=== PATIENT | male | born 1930 | race Hispanic/Latino ===

== ENCOUNTER 2016-11-15 23:48 | Inpatient (IN) | payer MEDICARE ==
[2016-11-15 23:59] VITALS: BMI 25.9
--- NOTE | 2016-11-16 00:35 | ED PDOC ---
Arrival/HPI - General Chief Complaint: Trauma Time Seen by Provider: 11/16/16 00:11 Historian: Patient - History of Present Illness Narrative History of Present Illness (Text): 11/16/16 00:22 Higinio Galarza is an 86 year old male, denies any past medical history, who presents to the Emergency department status post mechanical fall. Patient states he tripped over his own feet and fell on to his left hip and elbow. Patient now presents with left hip and elbow pain. Patient is unable to bear weight secondary to pain. Patient denies any other trauma, tingling/numbness in the extremities, or any other complaints. Time/Duration: Other (today) Symptom Onset: Gradual Symptom Course: Unchanged Activities at Onset: Light Context: Home, Tripped Past Medical History - Provider Review Nursing Documentation Reviewed: Yes - Psychiatric Hx Substance Use: No - Anesthesia Hx Anesthesia: No Family/Social History - Physician Review Nursing Documentation Reviewed: Yes Family/Social History: Unknown Family HX Smoking Status: Never Smoked Hx Alcohol Use: No Hx Substance Use: No Allergies/Home Meds Allergies/Adverse Reactions: Allergies No Known Allergies Allergy (Verified 11/16/16 00:02) Home Medications: Home Meds Medication Instructions Recorded Confirmed No Known Home Med 11/15/16 11/16/16 Physical Exam - Physical Exam Narrative Physical Exam (Text): - Review of Systems Constitutional: Normal. absent: Fatigue, Weight Change, Fevers Eyes: Normal ENT: Normal Respiratory: Normal absent: SOB, Cough, Sputum Cardiovascular: Normal absent: Chest pain, Palpitations, Syncope Gastrointestinal: Normal absent: Abdominal pain, Diarrhea, Nausea, Vomiting Genitourinary: Normal. absent: Dysuria, Frequency, Hematuria Musculoskeletal: +left hip pain, +left elbow pain absent: Back Pain, Neck Pain Skin: Normal Neurological: Normal absent: Focal Weakness Endocrine: Normal Hemo/Lymphatic: Normal Psychiatric: Normal - Physical exam Patient appears age appropriate, speaking full sentences without difficulty Head atraumatic. No nasal bone deformity or tenderness, no facial or jaw pain/ swelling. No neck midline tenderness, thoracic and lumbar spine with no midline tenderness. Pt moving b/l upper extremities without difficulty, 5/5 strength, with full active and passive ROM. Left elbow with superficial skin avulsion, no active bleeding, palpable hematoma to the area. Left hip with limited ROM due to pain and tenderness. Distal neurovascularly fully intact. Abd soft/nt/nd, no peritoneal signs. - Systems Exam Head: Present: Atraumatic, Normocephalic Pupils: Present: PERRL Extraocular Muscles: Present: EOMI Conjunctiva: Present: Normal Mouth: Present: Moist Mucous Membranes Neck: Present: Normal Range of Motion. No: MIDLINE TENDERNESS, Paraspinal Tenderness Respiratory/Chest: Present: Clear to Auscultation, Good Air Exchange. No: Respiratory Distress, Accessory Muscle Use, Tachypneic Cardiovascular: Present: Regular Rate and Rhythm, Normal S1, S2, Peripheral Pulses Present. No: Murmurs Abdomen: Present: Normal Bowel Sounds, No: Tenderness, Peritoneal Signs, Rebound, Guarding, Distention Back: Present: Normal Inspection. No: Midline Tenderness, Paraspinal Tenderness Neurological: Present: GCS=15, Speech Normal, cranial nerves II through XII fully intact with no cerebellar abnormality, neuro-sensory fully intact. No focal neurological deficits. Skin: Present: Warm, Dry, Normal Color. No: Rashes Psychiatric: Present: Alert, Oriented x 3, Normal Insight, Normal Concentration Vital Signs Reviewed: Yes Vital Signs Temp Pulse Resp BP Pulse Ox 11/16/16 01:51 93 H 18 147/88 94 L 11/15/16 23:58 98.4 F 85 18 145/87 95 Temperature: Afebrile Blood Pressure: Normal Pulse: Regular Respiratory Rate: Normal Appearance: Positive for: Well-Appearing, Non-Toxic, Comfortable Pain Distress: None Mental Status: Positive for: Alert and Oriented X 3 Medical Decision Making ED Course and Treatment: 11/16/16 00:22 Impression: 86 year old male presents s/p mechanical fall with left hip and elbow pain. On exam, left elbow with superficial skin avulsion, no active bleeding, palpable hematoma to the area. Left hip with limited ROM due to pain and tenderness. Otherwise benign exam. Differential Diagnosis include but are not limited to: fracture vs. contusion vs. sprain Plan: -- CT Head w/o contrast -- XR Left Elbow -- XR Left Femur -- XR Hips -- XR Bilateral Knees -- Labs -- Morphine -- Reassess and disposition Progress Notes: 11/16/16 01:30 CT Head: Dictated and Authenticated by: Ronak Biggs MD Brain: Obxi-du-nuhcuugf atrophy. No intracranial hemorrhage. No mass. Several scattered foci of decreased attenuation within periventricular/subcortical white matter. No edema. Ventricles: No hydrocephalus. Bones/joints: No acute fracture. Soft tissues: Unremarkable. Sinuses: Oito-oe-vnwmblid mucosal thickening of ethmoid sinuses. Mild mucosal thickening of frontal sinuses. Scattered minimal mucosal thickening of remaining sinuses. Mastoid air cells: No mastoid effusion. Orbits: Unremarkable as visualized. IMPRESSION: 1. No intracranial hemorrhage. 2. Nonspecific white matter changes. 3. Sinus disease. 4. Incidental/non-acute findings are described above. 11/16/16 01:32 Reviewed radiology, XR Hips shows intertrochanteric left hip fracture. XR Left Elbow unremarkable for any acute fractures or dislocation. XR Bilateral Knees unremarkable for any acute fractures or dislocation. 11/16/16 01:[address] Juancarlos Pisano, who is aware and agrees with plan. Accepts pt in to his service. Pt [facility] be [facility] to [facility] for hip fracture. Requests Dr. Curry and Dr. Espinosa on consult. pt and family aware of and agree with plan pt states that he is currently not in pain and does not want pain meds. - Lab Interpretations Lab Results: 11/16/16 00:35 11/16/16 00:35 Lab Results 11/16/16 00:35: Sodium 136, Potassium 4.2, Chloride 101, Carbon Dioxide 25, Anion Gap 14, BUN 23 H, Creatinine 1.1, Est GFR ( Amer) > 60, Est GFR ( Non-Af Amer) > 60, Random Glucose 142 H, Calcium 9.2, Total Bilirubin 1.2, AST 27, ALT 26, Alkaline Phosphatase 81, Total Protein 7.4, Albumin 3.8, Globulin 3.5, Albumin/Globulin Ratio 1.1 11/16/16 00:35: PT 11.4, INR 1.06, APTT 29.5 11/16/16 00:35: WBC 11.4 H, RBC 4.99, Hgb 15.0, Hct 44.0, MCV 88.2, MCH 30.1, MCHC 34.1, RDW 13.6, Plt Count 198, MPV 9.8, Gran % 70.6 H, Lymph % (Auto) 19.7 L, Arthur % (Auto) 8.7 H, Eos % (Auto) 0.7 L, Baso % (Auto) 0.3, Gran # 8.07 H, Lymph # 2.3, Arthur # 1.0 H, Eos # 0.1, Baso # 0.03 I have reviewed the lab results: Yes - RAD Interpretation Radiology Orders: 11/16/16 00:23 HEAD W/O CONTRAST [CT] Stat ELBOW LEFT 3 VIEWS ROUTINE [RAD] Stat FEMUR MIN 2 VIEWS LT [RAD] Stat HIP MIN 2V W/ PELVIS LT [RAD] Stat KNEES BILATERAL [RAD] Stat Sign Fabricator: ED Physician, Radiologist - Medication Orders Current Medication Orders: Discontinued Medications Morphine Sulfate (Morphine) 6 mg IM STAT STA Stop: 11/16/16 00:20 Last Admin: 11/16/16 00:38 Dose: 6 mg - Scribe Statement The provider has reviewed the documentation as recorded by the Scribrico Ta All medical record entries made by the Heladioibe were at my direction and personally dictated by me. I have reviewed the chart and agree that the record accurately reflects my personal performance of the history, physical exam, medical decision making, and the department course for this patient. I have also personally directed, reviewed, and agree with the discharge instructions and disposition. Disposition/Present on Arrival - Present on Arrival Any Indicators Present on Arrival: No History of DVT/PE: No History of Uncontrolled Diabetes: No Urinary Catheter: No History of Decub. Ulcer: No History Surgical Site Infection Following: None - Disposition Have Diagnosis and Disposition been Completed?: Yes Diagnosis: Hip fracture Disposition: HOSPITALIZED Disposition Time: 02:33 Patient Plan: Admission Condition: FAIR Referrals: Amadou Pisano MD [Primary Care Provider] - Follow up with primary
[2016-11-16 00:43] LABS: ADD MANUAL DIFF? NO
[2016-11-16 00:51] LABS: BASO # 0.03 K/mm3 (0.0-2.0); BASO % 0.3 % (0.0-3.0); EOS # 0.1 (0.0-0.7); EOS % 0.7 % (1.5-5.0); GRAN # 8.07 (1.4-6.5); GRAN % 70.6 % (50.0-68.0); LYMPH # 2.3 (1.2-3.4); LYMPH % 19.7 % (22.0-35.0); MEAN CELL VOLUME 88.2 fL (80.0-105.0); MEAN CORPUSCULAR HEMOGLOBIN 30.1 pg (25.0-35.0); MEAN CORPUSCULAR HGB CONC 34.1 g/dl (31.0-37.0); MEAN PLATELET VOLUME 9.8 fl (7.0-11.0); MONO % 8.7 % (1.0-6.0); PLATELET COUNT 198 10^3/uL (120.0-450.0); RED CELL DISTRIBUTION WIDTH 13.6 % (11.5-14.5); WHITE BLOOD COUNT 11.4 10^3/ul (4.5-11.0)
[2016-11-16 00:59] LABS: ALB/GLOB RATIO 1.1 (1.1-1.8); ALKALINE PHOSPHATASE 81 U/L (38-133); ALT/SGPT 26 U/L (7-56); AST/SGOT 27 U/L (15-59); BILIRUBIN,TOTAL 1.2 mg/dL (0.2-1.3); BLOOD UREA NITROGEN 23 mg/dL (7-21); CALCIUM 9.2 mg/dL (8.4-10.5); CARBON DIOXIDE 25 mmol/L (21-33); CHLORIDE 101 mmol/L (98-107); GFR AFRICAN-AMERICAN > 60; GLUCOSE,RANDOM 142 mg/dL (70-110); INR 1.06 (0.93-1.08); PARTIAL THROMBOPLASTIN TIME 29.5 Seconds (23.7-30.8); POTASSIUM 4.2 mmol/L (3.6-5.0); SODIUM 136 mmol/L (132-148); TOTAL PROTEIN 7.4 g/dL (5.8-8.3)
--- NOTE | 2016-11-16 01:07 | CT ---
EXAM: CT Head Without Intravenous Contrast CLINICAL HISTORY: 86 years old, male; Injury or trauma; Fall; Initial encounter; Blunt trauma (contusions or hematomas); Consciousness not specified TECHNIQUE: Axial computed tomography images of the head/brain without intravenous contrast. This CT exam was performed using one or more of the following dose reduction techniques: automated exposure control, adjustment of the mA and/or kV according to patient size, and/or use of iterative reconstruction technique. COMPARISON: No relevant prior studies available. FINDINGS: Brain: Vnlm-ib-vslkefbu atrophy. No intracranial hemorrhage. No mass. Several scattered foci of decreased attenuation within periventricular/subcortical white matter. No edema. Ventricles: No hydrocephalus. Bones/joints: No acute fracture. Soft tissues: Unremarkable. Sinuses: Cwfc-mk-popjrkyd mucosal thickening of ethmoid sinuses. Mild mucosal thickening of frontal sinuses. Scattered minimal mucosal thickening of remaining sinuses. Mastoid air cells: No mastoid effusion. Orbits: Unremarkable as visualized. IMPRESSION: 1. No intracranial hemorrhage. 2. Nonspecific white matter changes. 3. Sinus disease. 4. Incidental/non-acute findings are described above.
[2016-11-16] MEDS ORDERED: Oxycodone/Acetaminophen 5/325 mg Tab PO PRN (02:33)
--- NOTE | 2016-11-16 08:46 | RAD ---
PROCEDURE: Left femur HISTORY: fall COMPARISON: TECHNIQUE: Five views FINDINGS: There is a displaced intertrochanteric fracture of the left hip. The remainder of the femur is intact. IMPRESSION: As above
--- NOTE | 2016-11-16 08:47 | RAD ---
PROCEDURE: Left Hip X-ray Radiographs. HISTORY: fall COMPARISON: None. FINDINGS: BONES: There is a displaced intertrochanteric fracture of the left hip. The pelvis is intact JOINTS: Normal. SOFT TISSUES: Normal. OTHER FINDINGS: None. IMPRESSION: There is a displaced intertrochanteric fracture of the left hip. The pelvis is intact
--- NOTE | 2016-11-16 08:49 | RAD ---
PROCEDURE: Bilateral knees HISTORY: fall COMPARISON: TECHNIQUE: Two views of each knee FINDINGS: There is joint space narrowing in the medial compartment of the left knee. The right knee is unremarkable IMPRESSION: Joint space narrowing medial compartment of left knee
--- NOTE | 2016-11-16 08:50 | RAD ---
PROCEDURE: Radiographs of the left elbow. HISTORY: fall COMPARISON: No prior. FINDINGS: BONES: Normal. No fracture. JOINTS: Normal. No osteoarthritis. SOFT TISSUES: Normal. JOINT EFFUSION: None. OTHER FINDINGS: None IMPRESSION: Unremarkable radiographs of the left elbow.
[2016-11-16 09:27] LABS: INR 1.05 (0.93-1.08); PARTIAL THROMBOPLASTIN TIME 29.6 Seconds (23.7-30.8)
--- NOTE | 2016-11-16 09:30 | RAD ---
HISTORY: OR COMPARISON: No prior. FINDINGS: LUNGS: No active pulmonary disease. PLEURA: No significant pleural effusion identified, no pneumothorax apparent. CARDIOVASCULAR: Normal. OSSEOUS STRUCTURES: No significant abnormalities. VISUALIZED UPPER ABDOMEN: Normal. OTHER FINDINGS: None. IMPRESSION: No active disease.
--- NOTE | 2016-11-16 10:08 | CON ---
DATE: 11/16/2016 The patient is an 86-year-old male who fell at home cleaning his yard and came to the ER early this m orning and x-rays showed a minimally displaced fracture, intertrochanteric region of the left hip. Rishabh gómez has good bone structure, is in excellent health for his age of 86. He takes no medications. Dr. Romel lynn is his doctor. We are going to get a medical clearance, Dr. Higgins cardiac evaluation and I w ill be able to perform an open reduction internal fixation with a peritrochanteric cee from [employer] to day. The patient understands the procedure, possible blood replacement and the benefit is that he wi ll be reduced pain and be able to get up out of bed. The risks are it may not heal well or it may ne ed a revision surgery, but the best thing is to stabilize the hip, so he could get up out of bed and it is going to take 3 months to heal. FINAL DIAGNOSIS: Intertrochanteric fracture of left hip. PLAN: To do open reduction internal fixation when medically cleared by Dr. Higgins Amadou Espinosa DO cc: [id number] TT: 11/16/2016 10:08:03 Confirmation # [id number] Dictation # [id number] cristhian
[2016-11-16] MEDS ORDERED: Sevoflurane - Inhalation Anesthetic Liq (250 ml) ONE (13:30)
[2016-11-16] MEDS ORDERED: Desflurane Inhalation Anesthetic Liq (240 ml) ONE ×2 (13:32→14:31)
[2016-11-16] MEDS ORDERED: Propofol 10 mg/ml Inj (20 ML) ONE ×2 (13:35→15:28)
--- NOTE | 2016-11-16 13:54 | CARD ---
APPROVED REPORT EKG Measurement Heart [id number] <Conclusion> Normal sinus rhythm Incomplete left bundle branch block ST & T wave abnormality, consider lateral ischemia Abnormal ECG
[2016-11-16] MEDS ORDERED: Succinylcholine 200 mg/10 ml Inj IV ONE (14:20)
[2016-11-16] MEDS ORDERED: Lactated Ringer's 1,000 ML IV SCH (14:58)
[2016-11-16] MEDS ORDERED: HYDROmorphone 0.5 mg/0.5 ml ISec IVP PRN ×2 (14:58→15:01)
[2016-11-16] MEDS ORDERED: Bupivacaine 0.5% Inj(30mL) ONE (15:18)
[2016-11-16] MEDS ORDERED: Neostigmine Methylsulfate 3mg/3ml Syringe IV ONE (15:20)
--- NOTE | 2016-11-16 15:48 | HP ---
HISTORY OF PRESENT ILLNESS: The patient is an 86-year-old male who presents to the Emergency Room co mplaining of pain in his left hip. He apparently was sweeping his alley way when he turned, tripped and fell. He denies hitting his head. He did, however, hit his elbow in the fall. Initially he was able to walk upstairs back into the house; however, the left hip pain worsened, so the patient prese nted to the Emergency Room. He is evaluated and admitted. PAST MEDICAL HISTORY: Positive for diverticulosis of the colon many years ago. He is also known to have a chronically elevated PSA with rather extensive negative workup with his urologist, Dr. Hay in the past. SOCIAL HISTORY: He is . He is a former smoker. He does not drink alcohol nor caffeine. ALLERGIES: HE HAD AN ADVERSE REACTION TO MELOXICAM IN THE PAST. MEDICATIONS: He is essentially taking no medications. REVIEW OF SYSTEMS: Otherwise, negative. PHYSICAL EXAMINATION: GENERAL: From the office notes, I see that the patient is 65 inches tall, weighs 180 pounds. VITAL SIGNS: In the Emergency Room, he was afebrile. Blood pressure is 136/71, heart rate is 71. HEENT: Unremarkable. NECK: Supple, with no lymphadenopathy, no goiter. LUNGS: Clear to auscultation and percussion. HEART: Regular, no murmurs appreciated. ABDOMEN: Soft and nontender with no organomegaly. EXTREMITIES: Free of cyanosis, clubbing or edema. There is tenderness on flexion, abduction and pal pation of the left hip. There is ecchymosis over the left elbow. NEUROLOGIC: The patient is awake, alert, and oriented with no focal neurological deficits. X-rays of the left hip show an intertrochanteric fracture. A CAT scan of the head is negative. X-ra ys of the left knee is negative. X-ray of the left elbow is negative. LABORATORY STUDIES: Show the white blood cell count to be 11.4, hemoglobin and hematocrit are 15.0 a nd 44.0 respectively. Platelet count is 138. Sodium is 136, potassium 4.2, BUN is 23, creatinine is 1.1. Nonfasting glucose is 142. PT/INR is 1.05. When seen today, the patient is in bed. His family is at bedside, Dr. Amadou Espinosa, the ortho pedist, also came into the room and the patient is to be taken to the operating room for pinning of t he intertrochanteric fracture of the left hip. The patient will be seen again tomorrow. We will fol low the patient postoperatively. Amadou Pisano MD cc: [id number] TT: 11/16/2016 15:47:14 jn
[2016-11-16] MEDS ORDERED: HYDROmorphone 0.5 mg/0.5 ml ISec SC PRN (16:02)
--- NOTE | 2016-11-16 16:13 | RAD ---
PROCEDURE: Fluoroscopy up to 1 hour HISTORY: ORIF LT HIP COMPARISON: TECHNIQUE: Fluoroscopy was provided in the operating room. 50 seconds of fluoroscopy time were utilized. 5 images were submitted FINDINGS: There is internal fixation of the left hip with a compression screw and intramedullary cee. IMPRESSION: As above
[2016-11-16] MEDS: Dextrose 5%/0.45% NS 1,000 ML IV SCH (17:07)
[2016-11-16 17:19] LABS: ADD MANUAL DIFF? NO
[2016-11-16 17:23] LABS: BASO # 0.02 K/mm3 (0.0-2.0); BASO % 0.1 % (0.0-3.0); EOS # 0.2 (0.0-0.7); EOS % 1.2 % (1.5-5.0); GRAN # 12.27 (1.4-6.5); HEMATOCRIT 42.1 % (42.0-52.0); LYMPH # 1.4 (1.2-3.4); LYMPH % 9.6 % (22.0-35.0); MEAN CORPUSCULAR HEMOGLOBIN 29.7 pg (25.0-35.0); MEAN PLATELET VOLUME 10.3 fl (7.0-11.0); MONO # 0.6 (0.1-0.6); MONO % 4.1 % (1.0-6.0); PLATELET COUNT 202 10^3/uL (120.0-450.0); RED CELL DISTRIBUTION WIDTH 13.9 % (11.5-14.5); WHITE BLOOD COUNT 14.4 10^3/ul (4.5-11.0)
--- NOTE | 2016-11-16 17:58 | CON ---
DATE: 11/16/2016 CONSULT SERVICE: Cardiology. REASON FOR CONSULTATION: Preop evaluation and risk stratification for left hip fracture, possible OR this morning. BRIEF CLINICAL HISTORY: This is an 86-year-old male with no significant past medical history. He do es not take any medications except Tylenol off and on. Has a history of both knee arthritis and ____ _ the stockings and then feels better; who tripped at home and fell down and sustained left hip intra trochanteric fracture requiring open reduction and internal fixation. The patient denies any chest p ain, denies any shortness of breath, denies any palpitations. PAST MEDICAL HISTORY: Nothing significant. SOCIAL HISTORY: Quit smoking 30 years ago. Denies any history of alcohol abuse. 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 The patient is pretty active. MEDICATIONS: None. ALLERGIES: No known drug allergies. REVIEW OF SYSTEMS: As per HPI. PHYSICAL EXAMINATION: VITAL SIGNS: Temperature afebrile, heart rate 71, blood pressure 124/78. HEENT: PERRLA. Extraocular muscles intact. NECK: Supple. No carotid bruits. No thyromegaly. CHEST: Clear to auscultation. HEART: S1, S2 regular. ABDOMEN: Soft. EXTREMITIES: Clubbing and cyanosis negative. LABORATORY DATA: Blood workup as follows: WBC 11.4, hemoglobin 15, hematocrit 44.0, platelet count 198. Chemistry shows sodium , potassium 4.2, chloride 101, carbon dioxide 25, anion gap of 14, BUN 23, creatinine 1.1. EKG shows normal sinus, incomplete left bundle, ST-T changes consistent with bundle branch abnormality, repolarization abnormality. IMPRESSION: Status post fall, status post intratrochanteric left fracture. Has a very active lifest yle, not on any medications, , diabetes, hypertension. Had no history of documented coronary ar iván disease. EKG shows normal sinus, incomplete left bundle, ST-T changes secondary to repolarizati on abnormality. The patient is cleared from cardiac point of view to go for the OR for hip surgery w ith a moderate risk secondary to underlying comorbidity, but no absolute contraindication. No histor y of congestive heart failure. No history of chest pain. No history of angina or arrhythmia. The p atient's baseline blood pressure elevated. Will start low dose of beta mera starting from afterno on to prevent going into atrial fibrillation postop from the pain. Will follow with you. Monitor hy pertension. Thank you, Dr. Espinosa, for providing me the opportunity in taking care of the patient Troy Higgins MD cc: [id number] TT: 11/16/2016 17:57:40 Confirmation # [id number] Dictation # [id number] dn
--- NOTE | 2016-11-16 18:46 | OP ---
PROCEDURE DATE: 11/16/2016 PREOPERATIVE DIAGNOSIS: Intertrochanteric fracture, left hip. POSTOPERATIVE DIAGNOSIS: Intertrochanteric fracture, left hip. PROCEDURE: Biomet peritroch percutaneous internal fixation with a [employer]omet peritroch cee 170 mm long f or the cee and the lag screw was 110 mm long and the angle was 27 degrees angle. ANESTHESIA: General endotracheal tube. DESCRIPTION OF PROCEDURE: After being taken to the OR, left hip prepped and draped in sterile fashio n on the fracture table with gentle traction on the left leg. The fracture was minimally displaced w ithout much comminution, and with the help of the C-arm, we saw that it was in good position then mad e the first incision after the general anesthesia endotracheal tube. A 2 cm incision 5 cm proximal t o the greater trochanter opening the skin and the fascia and going down to the tip of the greater tro chanter inserting the threaded tip guidewire and taken down past the fracture to allow us to over chloé m to a 17 mm reamer for 7 cm. Then we passed the beaded tip guidewire through the fracture into the distal fragment and over reamed everything with a 12-1/2 mm reamer to make sure we could get the 11 m m wide cee down, which now we did after we put on the jig and was inserted to the level of the femora l neck and then put in this for the second incision and going into the femoral head and neck wi th a guidewire. It showed good position in both AP and lateral and then we reamed for the lag screw, which was 10 mm long. We put in the lag screw over the guidewire by tapping it first, because the b one was very good quality and the lag screw was inserted through the cee that protected the fracture. Then, we took the traction off and put in the distal locking screw, 34 mm long cortical screw to lo ck the cee distally after we took the traction off. The 3 wounds that we used for the 3 implants, th e nail, the lag screw and the cortical screw were all irrigated with normal saline with Kantrex, clos ed in layers with running 0 Vicryl deep layer, 2-0 Vicryl for subcutaneous tissue, skin with 2-0 nylo n. The patient taken to recovery room in good condition. Amadou Espinosa DO cc: [id number] TT: 11/16/2016 18:46:36 [facility] # [id number] mn
[2016-11-16] MEDS ORDERED: ceFAZolin 1 gm in NS 1 GM/100 ML BAG IVPB ONE (22:00)
[2016-11-17] MEDS: Oxycodone/Acetaminophen 5/325 mg Tab PO PRN (00:05)
[2016-11-17] MEDS: Dextrose 5%/0.45% NS 1,000 ML IV SCH (06:46)
[2016-11-17 06:59] LABS: ADD MANUAL DIFF? NO
[2016-11-17 07:32] LABS: ALB/GLOB RATIO 1.1 (1.1-1.8); ALKALINE PHOSPHATASE 65 U/L (38-133); ALT/SGPT 26 U/L (7-56); AST/SGOT 28 U/L (15-59); BLOOD UREA NITROGEN 22 mg/dL (7-21); CALCIUM 8.6 mg/dL (8.4-10.5); CARBON DIOXIDE 26 mmol/L (21-33); CHLORIDE 104 mmol/L (98-107); CHOLESTEROL 123 mg/dL (130-200); GFR AFRICAN-AMERICAN > 60; GLUCOSE,RANDOM 148 mg/dL (70-110); POTASSIUM 4.5 mmol/L (3.6-5.0); SODIUM 137 mmol/L (132-148); TOTAL PROTEIN 6.6 g/dL (5.8-8.3)
[2016-11-17 07:41] LABS: BASO # 0.01 K/mm3 (0.0-2.0); BASO % 0.1 % (0.0-3.0); EOS % 0.1 % (1.5-5.0); GRAN # 11.13 (1.4-6.5); GRAN % 79.8 % (50.0-68.0); LYMPH # 1.6 (1.2-3.4); LYMPH % 11.5 % (22.0-35.0); MEAN CELL VOLUME 88.1 fL (80.0-105.0); MEAN CORPUSCULAR HEMOGLOBIN 29.8 pg (25.0-35.0); MEAN CORPUSCULAR HGB CONC 33.8 g/dl (31.0-37.0); MEAN PLATELET VOLUME 10.2 fl (7.0-11.0); MONO # 1.2 (0.1-0.6); MONO % 8.5 % (1.0-6.0); PLATELET COUNT 188 10^3/uL (120.0-450.0); RED CELL DISTRIBUTION WIDTH 13.5 % (11.5-14.5); WHITE BLOOD COUNT 13.9 10^3/ul (4.5-11.0)
--- NOTE | 2016-11-17 09:31 | PN ---
DATE: 11/17/2016 This 86-year-old male underwent left hip pinning for a fractured left hip yesterday. He is doing khloe te well. Hemoglobin is stable, over 10 grams and pain is controlled. We will get him out of bed tod ay. He can actually put weight on his left hip protected with a walker with the help of therapy and we will continue therapy tomorrow and still follow his H and H again tomorrow. Wound is dry and hope fully we maybe could plan for accelerated rehab by just sending him home with good rehab and visiting nurses because he has good family support and was very active preop. He is in good health. FINAL DIAGNOSIS: Postop 1 day left hip intertrochanteric fracture with a peritrochanteric cee implneo shelley. Send to therapy, ambulate walking, partial weightbearing and follow his hemoglobin and hematocr it. Amadou Espinosa DO cc: [id number] TT: 11/17/2016 09:30:45 Confirmation # [id number] Dictation # [id number] sn
[2016-11-17] MEDS: Enoxaparin 30 mg Syringe SC SCH (11:13)
--- NOTE | 2016-11-17 14:07 | PN ---
DATE: 11/17/2016 REASON FOR CONSULTATION AND FOLLOWUP: Preop evaluation, atrial fibrillation, left hip surgery, statu s post OR, now postop followup. BRIEF CLINICAL HISTORY: This is an 86-year-old male with no significant past medical history, fell d own and sustained a fracture of left hip, status post OR internal fixation. Denies any chest pain, s hortness of breath, any palpitation. PHYSICAL EXAMINATION: VITAL SIGNS: Temperature afebrile, heart rate 97, blood pressure 155/102. HEENT: PERRLA. Extraocular muscles intact. NECK: Supple. No carotid bruits. No thyromegaly. CHEST: Clear to auscultation. HEART: S1, S2 regular. ABDOMEN: Soft. EXTREMITIES: Clubbing and cyanosis negative. Operative site appears clean. BLOOD WORKUP: As follows: WBC ____, hemoglobin ____, hematocrit 37, platelet count 188. Chemistry shows sodium 137, potassium 4.5, chloride 104, carbon dioxide 26, anion gap of 12, BUN 22, creatinine 1.0. IMPRESSION: Status fall, status post open reduction internal fixation, sinus tachycardia, hypertensi on postop. RECOMMENDATION: Increase metoprolol to 25 b.i.d. Continue DVT prophylaxis. We will follow with you. Thank you, ____, for providing the opportunity in taking care of this patient. Will follow with you. Troy Higgins MD cc: [id number] TT: 11/17/2016 14:06:45 Confirmation # [id number] Dictation # [id number] sonia
[2016-11-17 17:24] LABS: ADD MANUAL DIFF? NO
[2016-11-17 17:31] LABS: BASO # 0.02 K/mm3 (0.0-2.0); BASO % 0.2 % (0.0-3.0); EOS # 0.2 (0.0-0.7); EOS % 1.7 % (1.5-5.0); GRAN # 9.32 (1.4-6.5); HEMATOCRIT 36.6 % (42.0-52.0); LYMPH # 2.5 (1.2-3.4); LYMPH % 18.6 % (22.0-35.0); MEAN CELL VOLUME 89.1 fL (80.0-105.0); MEAN CORPUSCULAR HEMOGLOBIN 29.9 pg (25.0-35.0); MEAN CORPUSCULAR HGB CONC 33.6 g/dl (31.0-37.0); MEAN PLATELET VOLUME 9.7 fl (7.0-11.0); MONO # 1.3 (0.1-0.6); MONO % 9.5 % (1.0-6.0); PLATELET COUNT 188 10^3/uL (120.0-450.0); RED CELL DISTRIBUTION WIDTH 13.7 % (11.5-14.5); WHITE BLOOD COUNT 13.3 10^3/ul (4.5-11.0)
[2016-11-18 07:26] LABS: ALB/GLOB RATIO 1.1 (1.1-1.8); BILIRUBIN,TOTAL 1.1 mg/dL (0.2-1.3); CALCIUM 8.9 mg/dL (8.4-10.5); MAGNESIUM 2.1 mg/dL (1.7-2.2); PHOSPHOROUS 3.6 mg/dL (2.5-4.5); POTASSIUM 4.3 mmol/L (3.6-5.0); TOTAL PROTEIN 6.3 g/dL (5.8-8.3)
[2016-11-18 09:05] LABS: ADD MANUAL DIFF? NO
--- NOTE | 2016-11-18 09:22 | PN ---
DATE: 11/18/2016 The patient is 2 days postop left hip fracture with a peritroch intramedullary cee. He is stable. He ambulated yesterday in the room. Will see how he does today and see his new hemoglobin and hematocrit which are not back yet; it is 8: 30 in the morning. If he is confident in good family follow up, we can send him home and then avoiding subacute rehab then I could follow him closer. His wound is dry. I will come back to see how he does with therapy and maybe he can go home in 2 days. Amadou Espinosa DO cc: [id number] TT: 11/18/2016 09:21:33 Confirmation # [id number] Dictation # [id number] mn JADA
[2016-11-18] MEDS: Enoxaparin 30 mg Syringe SC SCH (09:31)
[2016-11-18 09:32] LABS: BASO # 0.02 K/mm3 (0.0-2.0); BASO % 0.2 % (0.0-3.0); EOS # 0.3 (0.0-0.7); EOS % 2.3 % (1.5-5.0); GRAN # 9.46 (1.4-6.5); GRAN % 73.8 % (50.0-68.0); HEMATOCRIT 34.6 % (42.0-52.0); LYMPH # 1.8 (1.2-3.4); LYMPH % 13.7 % (22.0-35.0); MEAN CELL VOLUME 89.2 fL (80.0-105.0); MEAN CORPUSCULAR HEMOGLOBIN 29.9 pg (25.0-35.0); MEAN CORPUSCULAR HGB CONC 33.5 g/dl (31.0-37.0); MEAN PLATELET VOLUME 10.4 fl (7.0-11.0); MONO # 1.3 (0.1-0.6); PLATELET COUNT 191 10^3/uL (120.0-450.0); RED CELL DISTRIBUTION WIDTH 13.8 % (11.5-14.5); WHITE BLOOD COUNT 12.8 10^3/ul (4.5-11.0)
[2016-11-18] MEDS: POLYETHYLENE GLYCOL 3350 17 GM/Dose PACKET PO SCH ×2 (10:22→17:43)
[2016-11-18] MEDS: Oxycodone/Acetaminophen 5/325 mg Tab PO PRN ×2 (14:10→21:51)
--- NOTE | 2016-11-18 16:43 | PN ---
DATE: 11/18/2016 REASON FOR CONSULTATION AND FOLLOWUP: Preop evaluation, atrial fib, preop evaluation, risk stratific ation, status post followup. SUBJECTIVE: The patient denies any chest pain, shortness of breath, any palpitation. OBJECTIVE FINDINGS: PHYSICAL EXAMINATION: VITAL SIGNS: Temperature afebrile, heart rate , blood pressure 123/71. HEENT: PERRLA. Extraocular muscles intact. NECK: Supple. No carotid bruits. No thyromegaly. CHEST: Clear to auscultation. HEART: S1, S2 regular. ABDOMEN: Soft. EXTREMITIES: Clubbing, cyanosis negative. BLOOD WORKUP: WBC 12.8, hemoglobin 11. , hematocrit 34.6, platelet count 191. Chemistry shows s odium 135, potassium 4.3, chloride 102, carbon dioxide 26, anion gap of 11, BUN 30, creatinine 1.4. IMPRESSION: Status post , status post hip fracture, left intraventricular, status post open red uction internal fixation, hypertension, tachycardia secondary to after the exercise. The rest of the time, blood pressure remains stable. RECOMMENDATION: Continue perioperative beta mera, low dose, 25 b.i.d. Continue rehabilitation. Discussed with the patient. The patient was not willing to go to rehab. Discussed in length and exp lained the benefit of going to rehab. The patient agreeable to go to rehab. Discuss with Dr. Usama hale. Thank you, Dr. Espinosa/Dr. Pisano, for providing us the opportunity in taking care of the pat ient. Continue deep venous thrombosis prophylaxis, 30 mg of Lovenox daily. We will follow with you. Troy Higgins MD cc: [id number] TT: 11/18/2016 16:42:25 Confirmation # [id number] Dictation # [id number]
[2016-11-19 07:27] LABS: ALB/GLOB RATIO 1.1 (1.1-1.8); ALKALINE PHOSPHATASE 61 U/L (38-133); ALT/SGPT 30 U/L (7-56); AST/SGOT 28 U/L (15-59); BILIRUBIN,TOTAL 1.5 mg/dL (0.2-1.3); BLOOD UREA NITROGEN 38 mg/dL (7-21); CALCIUM 8.8 mg/dL (8.4-10.5); CARBON DIOXIDE 25 mmol/L (21-33); CHLORIDE 103 mmol/L (98-107); GFR AFRICAN-AMERICAN > 60; GLUCOSE,RANDOM 112 mg/dL (70-110); POTASSIUM 4.3 mmol/L (3.6-5.0); SODIUM 137 mmol/L (132-148); TOTAL PROTEIN 6.4 g/dL (5.8-8.3)
[2016-11-19 08:03] VITALS: RESP 20; TEMP 98.5; O2SAT 94
[2016-11-19] MEDS: Enoxaparin 30 mg Syringe SC SCH (09:33)
[2016-11-19] MEDS: POLYETHYLENE GLYCOL 3350 17 GM/Dose PACKET PO SCH (09:37)
[2016-11-19 09:39] VITALS: BP 126/88; PULSE 84
== END 2016-11-19 14:06 | DRG 482 ==
LOC: ED 23:48 → ERH 11-16 02:33 → 5RNO 11-16 04:00
PROVIDERS: ADMIT Internal Medicine; ATTEND Internal Medicine
PROC: 0SSB04Z Reposition Left Hip Joint with Internal Fixation Device, Open Approach (ICD-10-PCS; principal; 2016-11-16 13:03)
DX: S72.142A Displaced intertrochanteric fracture of left femur, initial encounter for closed fracture (principal); I48.91 Unspecified atrial fibrillation; I44.7 Left bundle-branch block, unspecified; I10 Essential (primary) hypertension; W01.0XXA Fall on same level from slipping, tripping and stumbling without subsequent striking against object, initial encounter; Y92.009 Unspecified place in unspecified non-institutional (private) residence as the place of occurrence of the external cause; K57.30 Diverticulosis of large intestine without perforation or abscess without bleeding; M17.0 Bilateral primary osteoarthritis of knee; S51.009A Unspecified open wound of unspecified elbow, initial encounter; Z87.891 Personal history of nicotine dependence; R40.2412 Glasgow coma scale score 13-15, at arrival to emergency department; R00.0 Tachycardia, unspecified

== ENCOUNTER 2016-11-28 10:26 | Inpatient (IN) | payer MEDICARE ==
[2016-11-28] MEDS ORDERED: Insulin Regular 1 UNITS/0.01 ML ML IV STA (10:45)
[2016-11-28] MEDS ORDERED: Dextrose 50% SYRINGE Inj (50 ml) IVP STA (10:45)
[2016-11-28] MEDS ORDERED: Sodium Bicarbonate 8.4% 50 MEQ in Dextrose 5% In Water 1,000 ML IV SCH (10:45)
[2016-11-28 10:59] LABS: BASO # 0.02 K/mm3 (0.0-2.0); BASO % 0.2 % (0.0-3.0); EOS # 0.3 (0.0-0.7); EOS % 2.4 % (1.5-5.0); GRAN % 82.3 % (50.0-68.0); HEMOGLOBIN 10.5 gm/dL (14.0-18.0); LYMPH % 9.9 % (22.0-35.0); MEAN CELL VOLUME 88.1 fL (80.0-105.0); MEAN CORPUSCULAR HEMOGLOBIN 29.8 pg (25.0-35.0); MEAN CORPUSCULAR HGB CONC 33.9 g/dl (31.0-37.0); MEAN PLATELET VOLUME 9.3 fl (7.0-11.0); MONO # 0.5 (0.1-0.6); MONO % 5.2 % (1.0-6.0); PLATELET COUNT 264 10^3/uL (120.0-450.0); RBC 3.52 10^6/uL (3.5-6.1); RED CELL DISTRIBUTION WIDTH 13.9 % (11.5-14.5); WHITE BLOOD COUNT 10.4 10^3/ul (4.5-11.0)
[2016-11-28 11:06] LABS: ALBUMIN 3.5 g/dL (3.0-4.8); CALCIUM 8.9 mg/dL (8.4-10.5)
--- NOTE | 2016-11-28 11:09 | ED PDOC ---
Arrival/HPI - General Time Seen by Provider: 11/28/16 10:31 Historian: Patient, [facility] - History of Present Illness Narrative History of Present Illness (Text): 11/28/16 10:51 A 86 year old male is sent into the emergency department from [facility] for abnormal lab work. Patient recently had a hip fracture and was discharged to [facility]. He was sent in today with acute renal failure. Patient Potassium is 7, BUN is 133 and Creatinine is 9.2. On review of prior lab work patient has a baseline creatinine of 1.3. Currently the patient reports inability to urinate. He says during the day "not a lot comes out" and at night "nothing comes out." Patient says he normal does not have an issue urinating and this is the first time. He denies any fever, chills or other complaints at this time. PMD: Dr. Pisano Time/Duration: Other Symptom Onset: Sudden Symptom Course: Unchanged Quality: Other Activities at Onset: Rest Context: Other (nusing home) Past Medical History - Provider Review Nursing Documentation Reviewed: Yes - Infectious Disease Hx of Infectious Diseases: None - Cardiac Hx Hypertension: Yes - HEENT Hx HEENT Disorder: Yes Hx Deafness: Yes - Hematological/Oncological Hx Blood Transfusions: No Hx Blood Transfusion Reaction: No - Musculoskeletal/Rheumatological Hx Falls: Yes Hx Fractures: Yes (left femur) Hx Unsteady Gait: Yes Other/Comment: Muscle weakness - Psychiatric Hx Substance Use: No - Surgical History Other/Comment: Hip surgery. - Anesthesia Hx Anesthesia Reactions: No Hx Malignant Hyperthermia: No Family/Social History - Physician Review Nursing Documentation Reviewed: Yes Family/Social History: Unknown Family HX Smoking Status: Never Smoked Hx Alcohol Use: No Hx Substance Use: No Allergies/Home Meds Allergies/Adverse Reactions: Allergies meloxicam Allergy (Verified 11/28/16 10:39) .unknown Home Medications: Home Meds Medication Instructions Recorded Confirmed Docusate [Colace] 200 mg PO HS 11/28/16 11/28/16 Enoxaparin [Lovenox] 30 mg SC DAILY 11/28/16 11/28/16 Metoprolol Tartrate [Lopressor] 25 mg PO BID 11/28/16 11/28/16 Polyethylene Glycol 3350 [Miralax] 1 packet PO BID 11/28/16 11/28/16 oxyCODONE/Acetaminophen [Percocet 1 tab PO Q4 PRN 11/28/16 11/28/16 5/325 mg Tab] Review of Systems - Review of Systems Constitutional: absent: Fevers Eyes: absent: Vision Changes ENT: absent: Sinus Congestion Respiratory: absent: SOB Cardiovascular: absent: Chest Pain Gastrointestinal: absent: Abdominal Pain Genitourinary Male: Urinary Output Changes Musculoskeletal: absent: Back Pain Skin: absent: Rash Neurological: absent: Headache, Dizziness Endocrine: absent: Diaphoresis Psychiatric: absent: Depression Physical Exam Vital Signs Reviewed: Yes Vital Signs Temp Pulse Resp BP Pulse Ox 11/28/16 12:23 83 16 118/67 100 11/28/16 11:01 97.8 F 68 17 141/74 98 Temperature: Afebrile Blood Pressure: Normal Pulse: Regular Respiratory Rate: Normal Appearance: Positive for: Well-Appearing, Non-Toxic, Comfortable Pain Distress: None Mental Status: Positive for: Alert and Oriented X 3 - Systems Exam Head: Present: Atraumatic, Normocephalic Pupils: Present: PERRL Extroacular Muscles: Present: EOMI Conjunctiva: Present: Normal Mouth: Present: Moist Mucous Membranes Neck: Present: Normal Range of Motion Respiratory/Chest: Present: Clear to Auscultation, Good Air Exchange. No: Respiratory Distress, Accessory Muscle Use Cardiovascular: Present: Regular Rate and Rhythm, Normal S1, S2. No: Murmurs Abdomen: Present: Distention, Normal Bowel Sounds. No: Tenderness, Peritoneal Signs, Rebound, Guarding Back: Present: Normal Inspection Upper Extremity: Present: Normal Inspection. No: Cyanosis, Edema Lower Extremity: Present: Normal Inspection. No: Edema Neurological: Present: GCS=15, CN II-XII Intact, Speech Normal Skin: Present: Warm, Dry, Normal Color. No: Rashes Psychiatric: Present: Alert, Oriented x 3, Normal Insight, Normal Concentration Medical Decision Making ED Course and Treatment: 11/28/16 10:51 Impression: A 86 year old male with urinary retention and renal failure. On physical examination the patient has a distended abdomen but it non tender. Differential Diagnosis include but are not limited to: urinary retention Plan: -- EKG -- Chest X-ray -- Labs -- Urinalysis -- Hyperkalemia cocktail: Calcium Gluconate, amp bicarbonate, amp d50, insulin- - Reassess and disposition Prior Visits: Notes and results from previous visits were reviewed. The patient last presented to the emergency department on 11/16/16 for evaluation after a mechanical fall. Progress Notes: EKG: Ordered, reviewed, and independently interpreted the EKG. Rate : 96 BPM Rhythm : NSR Interpretation : T wave changes concerning for hyperkalemia. 11/28/16 11:[address] Patient had 1.7 liter of urine output, but then urine became blood tinged. MD was informed and nurse was told to place clamp. Final beasley output was 2.3L. Spoke to Dr. Campbell Alicea. He agrees that patient needs admission for renal failure likely from obstruction. Hyperkalemia was treated. 2L IVF infusing. Fley in place. Urology consult placed (Omayra/Darryl) - Lab Interpretations Lab Results: 11/28/16 10:40 11/28/16 10:40 Lab Results 11/28/16 11:00: Urine Color Red, Urine Appearance Cloudy, Urine pH 7.0, Ur Specific [place] 1.020, Urine Protein >=300 H, Urine Glucose (UA) Negative, Urine Ketones Negative, Urine Blood Large H, Urine Nitrate Negative, Urine Bilirubin Negative, Urine Urobilinogen 0.2, Ur Leukocyte Esterase Trace H, Urine RBC Tntc, Urine WBC 5 - 10, Ur Epithelial Cells 0 - 2, Urine Bacteria Trace 11/28/16 10:40: Sodium 131 L, Potassium 7.5 H* D, Chloride 98, Carbon Dioxide 19 L, Anion Gap 22 H, BUN 141 H*, Creatinine 10.9 H*, Est GFR ( Amer) 5, Est GFR (Non-Af Amer) 4, Random Glucose 133 H, Calcium 8.9, Phosphorus 8.4 H, Magnesium 3.0 H, Total Bilirubin 1.3, AST 41, ALT 55, Alkaline Phosphatase 71, Total Protein 7.0, Albumin 3.5, Globulin 3.4, Albumin/Globulin Ratio 1.0 L 11/28/16 10:40: WBC 10.4, RBC 3.52, Hgb 10.5 L, Hct 31.0 L, MCV 88.1, MCH 29.8, MCHC 33.9, RDW 13.9, Plt Count 264, MPV 9.3, Gran % 82.3 H, Lymph % (Auto) 9.9 L , [place] % (Auto) 5.2, Eos % (Auto) 2.4, Baso % (Auto) 0.2, Gran # 8.60 H, Lymph # 1.0 L, [place] # 0.5, Eos # 0.3, Baso # 0.02 I have reviewed the lab results: Yes - RAD Interpretation Radiology Orders: 11/28/16 10:40 CHEST PORTABLE [RAD] Stat - Medication Orders Current Medication Orders: Sodium Chloride (Sodium Chloride 0.9%) 1,000 mls @ 100 mls/hr IV .Q10H JHON Discontinued Medications Calcium Gluconate (Calcium Gluconate Iv) Confirm Administered Dose 1,000 mg .ROUTE .STK-MED ONE Stop: 11/28/16 11:17 Last Admin: 11/28/16 11:32 Dose: Dextrose (Dextrose 50% Inj) 50 ml IVP STAT STA Stop: 11/28/16 10:46 Last Admin: 11/28/16 11:29 Dose: 50 ml Calcium Gluconate 1,000 mg/ (Dextrose) 110 mls @ 110 mls/hr IVPB ONCE ONE Stop: 11/28/16 11:41 Last Admin: 11/28/16 11:31 Dose: 110 mls/hr Sodium Chloride (Sodium Chloride 0.9%) 1,000 mls @ 999 mls/hr IV .Q1H1M STA Stop: 11/28/16 13:10 Last Admin: 11/28/16 12:51 Dose: 999 mls/hr Sodium Chloride (Sodium Chloride 0.9%) 1,000 mls @ 999 mls/hr IV .Q1H1M STA Stop: 11/28/16 13:13 Insulin Human Regular (Humulin R) 10 units IV STAT STA Stop: 11/28/16 10:46 Last Admin: 11/28/16 11:29 Dose: 10 units Pneumococcal Polyvalent Vaccine (Pneumovax 23 Vaccine) 0.5 ml IM .ONCE ONE Stop: 11/28/16 14:03 Sodium Bicarbonate (Sodium Bicarbonate (8.4%) 50 Meq Syringe) Confirm Administered Dose 50 meq .ROUTE .STK-MED ONE Stop: 11/28/16 11:17 Last Admin: 11/28/16 11:32 Dose: Sodium Bicarbonate (Sodium Bicarbonate (8.4%) 50 Meq Syringe) 50 meq IVP ONCE ONE Stop: 11/28/16 11:28 Last Admin: 11/28/16 11:31 Dose: 50 meq - Scribe Statement The provider has reviewed the documentation as recorded by the Nimesh Ricardo Provider Scribe Attestation: All medical record entries made by the Scribe were at my direction and personally dictated by me. I have reviewed the chart and agree that the record accurately reflects my personal performance of the history, physical exam, medical decision making, and the department course for this patient. I have also personally directed, reviewed, and agree with the discharge instructions and disposition. Disposition/Present on Arrival - Present on Arrival Any Indicators Present on Arrival: No History of DVT/PE: No History of Uncontrolled Diabetes: No Urinary Catheter: No History of Decub. Ulcer: No History Surgical Site Infection Following: None - Disposition Have Diagnosis and Disposition been Completed?: Yes Diagnosis: Renal failure Disposition: HOSPITALIZED Disposition Time: 12:19 Patient Plan: Admission Patient Problems: Current Active Problems Problem Status Onset Renal failure Acute Condition: FAIR
[2016-11-28] MEDS ORDERED: Sodium Bicarbonate (8.4%) 50 Meq Syringe ONE (11:16)
[2016-11-28] MEDS ORDERED: Sodium Bicarbonate (8.4%) 50 Meq Syringe IVP ONE (11:27)
[2016-11-28 11:30] LABS: URINE APPEARANCE CLOUDY (CLEAR); URINE BILIRUBIN NEGATIVE (NEGATIVE); URINE BLOOD LARGE (NEGATIVE); URINE COLOR RED (YELLOW); URINE GLUCOSE (UA) NEGATIVE (NEGATIVE); URINE LEUKOCYTE ESTERASE TRACE Leu/uL (NEGATIVE); URINE NITRATE NEGATIVE (NEGATIVE); URINE PROTEIN >=300 mg/dL (<30 mg/dL); URINE UROBILINOGEN 0.2 E.U./dL (<1 E.U./dL)
[2016-11-28 11:34] LABS: URINE BACTERIA TRACE (NEG); URINE EPITHELIAL CELLS 0 - 2 /hpf (0-5); URINE RBC TNTC /hpf (0-2)
[2016-11-28] MEDS ORDERED: Sodium Chloride 0.9% 1,000 ML IV STA ×2 (12:10→12:13)
--- NOTE | 2016-11-28 12:35 | RAD ---
HISTORY: renal failure COMPARISON: 11/16/2016 FINDINGS: LUNGS: No active pulmonary disease. PLEURA: No significant pleural effusion identified, no pneumothorax apparent. CARDIOVASCULAR: Normal. OSSEOUS STRUCTURES: No significant abnormalities. VISUALIZED UPPER ABDOMEN: Normal. OTHER FINDINGS: None. IMPRESSION: No active disease.
[2016-11-28 14:02] VITALS: BMI 28.4
[2016-11-28] MEDS ORDERED: Pneumococcal 23-Valent Vaccine IM ONE (14:02)
[2016-11-28] MEDS: Sodium Chloride 0.9% 1,000 ML IV SCH (17:55)
[2016-11-29] MEDS: Sodium Chloride 0.9% 1,000 ML IV SCH ×2 (05:54→10:29)
[2016-11-29 07:13] LABS: BASO # 0.01 K/mm3 (0.0-2.0); BASO % 0.1 % (0.0-3.0); EOS # 0.3 (0.0-0.7); EOS % 2.7 % (1.5-5.0); GRAN # 7.26 (1.4-6.5); GRAN % 74.5 % (50.0-68.0); HEMOGLOBIN 9.3 gm/dL (14.0-18.0); LYMPH # 1.5 (1.2-3.4); LYMPH % 15.3 % (22.0-35.0); MEAN CELL VOLUME 88.3 fL (80.0-105.0); MEAN CORPUSCULAR HEMOGLOBIN 29.5 pg (25.0-35.0); MEAN CORPUSCULAR HGB CONC 33.5 g/dl (31.0-37.0); MEAN PLATELET VOLUME 9.4 fl (7.0-11.0); MONO # 0.7 (0.1-0.6); MONO % 7.4 % (1.0-6.0); PLATELET COUNT 255 10^3/uL (120.0-450.0); RBC 3.15 10^6/uL (3.5-6.1); RED CELL DISTRIBUTION WIDTH 14.3 % (11.5-14.5); WHITE BLOOD COUNT 9.7 10^3/ul (4.5-11.0)
[2016-11-29 07:18] LABS: ALBUMIN 2.9 g/dL (3.0-4.8); CALCIUM 8.6 mg/dL (8.4-10.5)
--- NOTE | 2016-11-29 10:09 | CARD ---
APPROVED REPORT EKG Measurement Heart [id number] <Conclusion> Normal sinus rhythm Improved repolarization c/w ECG 11/16/16
--- NOTE | 2016-11-29 15:28 | US ---
PROCEDURE: Ultrasound of the Kidneys HISTORY: arf COMPARISON: None available. TECHNIQUE: Sonogram of the kidneys. FINDINGS: RIGHT KIDNEY: Measures: 11.0 x 6.3 cm. Normal in size, contour and echogenicity. No stone, solid mass lesion or hydronephrosis visualized. Multiple cysts are seen ranging in size from 1.5-6 cm LEFT KIDNEY: Measures: 12.2 x 5.8 cm. Normal in size, contour and echogenicity. No stone, solid mass lesion or hydronephrosis visualized. Multiple cysts are seen ranging in size from 3-4.6 cm OTHER FINDINGS: None. IMPRESSION: Bilateral simple cysts. There is no hydronephrosis.
--- NOTE | 2016-11-29 15:45 | CP.PCM.PN ---
Subjective - Date & Time of Evaluation Date of Evaluation: 11/29/16 Time of Evaluation: 15:30 - Subjective Subjective: 86 y/o male is admitted yesterday with acute renal failure. Patient was at [facility] sub-acute rehab after surgical repair of a left hip fracture he suffered in a trip and fall one week ago. Patient noted he was not urinating for a day or two and notified the nursing staff. Dr. Lala who was following the patient at [facility] did blood work twice and called me to say patient was on his way to the ER in acute renal failure. A Awad Catheter was passed and 1700 ml of clear yellow urine was drained, later more for a total of 2500 ml. Today when seen the patient just returned from physical therapy. He is feeling well and denies any complaints. Physical Exam is unremarkable. Awad Cath is in place and draining well. This morning's labs show the Potassium level has fallen from 7.5 on admission to 4.4 today. BUN & Creatinine were 10.9 & 141 on admission. This AM they are 2.2 and 53 respectively. CxR showed NAD, EKG shows RSR, and his vital signs are stable. Diagnosis : Acute Renal Failure secondary to urine retention of unknown etiology. Plan: I plan to discontinue the Awad Cath in AM for a voiding trial, and plan for possible return to [facility] rehab on Friday. Will ask Dr. Juancarlos Espinosa to consult one week after his repair of patient's hop fracture. Objective - Vital Signs/Intake and Output Vital Signs (last 24 hours): Temp Pulse Resp BP Pulse Ox 97 F L 96 H 19 130/56 L 94 L 11/29/16 11:42 11/29/16 11:42 11/29/16 11:42 11/29/16 11:42 11/29/16 06:00 Intake and Output: 11/29/16 11/29/16 06:59 18:59 Intake Total 1560 Output Total 1600 Balance -40 - Medications Medications: Current Medications Sodium Chloride (Sodium Chloride 0.9%) 1,000 mls @ 100 mls/hr IV .Q10H JHON Last Admin: 11/29/16 10:29 Dose: 100 mls/hr - Labs Labs: 11/29/16 05:46 11/29/16 05:30
[2016-11-30] MEDS: Sodium Chloride 0.9% 1,000 ML IV SCH ×3 (04:34→16:35)
--- NOTE | 2016-11-30 09:11 | RAD ---
PROCEDURE: Left Hip X-ray Radiographs. HISTORY: post op lt hip fx COMPARISON: 11/16/2016 FINDINGS: BONES: There is a compression screw and intramedullary cee on the left fixating an intertrochanteric fracture. There is anatomic alignment. No complicating factors JOINTS: Normal. SOFT TISSUES: Normal. OTHER FINDINGS: None. IMPRESSION: There is a compression screw and intramedullary cee on the left fixating an intertrochanteric fracture. There is anatomic alignment. No complicating factors
--- NOTE | 2016-11-30 13:55 | CP.PCM.PN ---
Subjective - Date & Time of Evaluation Date of Evaluation: 11/30/16 Time of Evaluation: 13:40 - Subjective Subjective: Patient is an 86 year old male w/p hip fracture and surgical repair a few weeks ago, recuperating in [facility] rehab when he suffered a sudden onset of urinary retention, and subsequently found to be in acute renal failure. He was admitted to [facility] 2 days ago, beasley cath was passed with good results. Over the last two days labs showed the BUN, Creatinine and Potassium normalizing. Repeat labs are ordered for the AM. When seen today, the patient is resting comfortably, with no complaints P.E. is unchanged, unremarkable. Of note is that the patient has had asymptomatic, markedly elevated PSA repeatedly over the past few years in the 8 - 10 range . This had been worked up extensively by his Urologist, Dr. Hay, including ultrasounds and biopsies , and has been negative At this point we will d/c his Beasley catheter for a voiding trial. If patient can urinate [facility]. Thank you Dr. Espinosa for surgical follow up post intertrochanteric fracture repair. Objective - Vital Signs/Intake and Output Vital Signs (last 24 hours): Temp Pulse Resp BP Pulse Ox 97 F L 76 18 129/57 L 96 11/30/16 11:56 11/30/16 11:56 11/30/16 11:56 11/30/16 11:56 11/30/16 06:00 Intake and Output: 11/30/16 11/30/16 06:59 18:59 Intake Total 1560 Output Total 1700 Balance -140 - Medications Medications: Current Medications Sodium Chloride (Sodium Chloride 0.9%) 1,000 mls @ 100 mls/hr IV .Q10H JHON Last Admin: 11/30/16 04:34 Dose: 100 mls/hr - Labs Labs: 11/29/16 05:46 11/29/16 05:30
[2016-12-01] MEDS: Sodium Chloride 0.9% 1,000 ML IV SCH ×3 (03:01→21:37)
[2016-12-01 08:06] LABS: BASO # 0.02 K/mm3 (0.0-2.0); BASO % 0.2 % (0.0-3.0); EOS # 0.5 (0.0-0.7); EOS % 5.8 % (1.5-5.0); GRAN # 6.55 (1.4-6.5); GRAN % 70.5 % (50.0-68.0); HEMOGLOBIN 9.1 gm/dL (14.0-18.0); LYMPH # 1.6 (1.2-3.4); MEAN CELL VOLUME 90.1 fL (80.0-105.0); MEAN CORPUSCULAR HEMOGLOBIN 29.2 pg (25.0-35.0); MEAN CORPUSCULAR HGB CONC 32.4 g/dl (31.0-37.0); MEAN PLATELET VOLUME 9.4 fl (7.0-11.0); MONO # 0.6 (0.1-0.6); MONO % 6.5 % (1.0-6.0); PLATELET COUNT 252 10^3/uL (120.0-450.0); RBC 3.12 10^6/uL (3.5-6.1); RED CELL DISTRIBUTION WIDTH 14.3 % (11.5-14.5); WHITE BLOOD COUNT 9.3 10^3/ul (4.5-11.0)
[2016-12-01 08:23] LABS: ALB/GLOB RATIO 0.9 (1.1-1.8); ALBUMIN 2.7 g/dL (3.0-4.8); ALT/SGPT 85 U/L (7-56); AST/SGOT 65 U/L (15-59); BLOOD UREA NITROGEN 14 mg/dL (7-21); CALCIUM 8.2 mg/dL (8.4-10.5); GFR AFRICAN-AMERICAN > 60; GFR NON-AFRICAN AMERICAN > 60
[2016-12-02 06:41] VITALS: O2SAT 96
[2016-12-02] MEDS ORDERED: Potassium Chloride 40 mEq/30 ml LIQ UD PO ONE (09:52)
[2016-12-02] MEDS: Sodium Chloride 0.9% 1,000 ML IV SCH (10:44)
[2016-12-02 18:45] VITALS: BP 124/66; RESP 17; TEMP 98.4
[2016-12-02 19:10] VITALS: PULSE 80
--- NOTE | 2016-12-05 17:40 | CP.PCM.CON ---
History of Present Illness - History of Present Illness History of Present Illness: This is 86 y/o male who was sent to the emergency room from [facility], he was found to have renal insufficiency. Pt reports recent left hip fracture, he had a surgery and was on [facility]. Pt reports no passing the urine for approximately two days; he was found to have a BUN of 133 and a Creatinine of 9.2. Beasley catheter was inserted and pt was admitted. Prior to this surgery and this episode pt reports he was voiding without any difficulties, he did report mild urinary frequency and occasional nocturia, but otherwise had been voiding with good force of stream, no dysuria or gross hematuria. He reports he has had yearly urologic follow up and has not been told of any prior prostate problems. Pt reports taking no chronic medications. He denies DM, high blood pressure or cardiac problems. Consultation was then requested regarding the above. Review of Systems - Review of Systems All systems: reviewed and no additional remarkable complaints except - Gastrointestinal Gastrointestinal: Constipation - Genitourinary Genitourinary: As Per HPI - Musculoskeletal Additional comments: Positive for left hip pain, difficulty ambulating Past Patient History - Infectious Disease Hx of Infectious Diseases: None - Past Social History Smoking Status: Never Smoked - CARDIAC Hx Hypertension: Yes - HEENT Hx HEENT Problems: Yes Hx Deafness: Yes - HEMATOLOGICAL/ONCOLOGICAL Hx Blood Transfusions: No Hx Blood Transfusion Reaction: No - INTEGUMENTARY Other/Comment: left hip surgical site intact swelling bruising noted covered with sutures and dsd, small surgical incision with sutures below 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 - ANESTHESIA Hx Anesthesia Reactions: No Hx Malignant Hyperthermia: No Meds Allergies/Adverse Reactions: Allergies Allergy/AdvReac Type Severity Reaction Status Date / Time meloxicam Allergy .unknown Verified 11/28/16 10:39 Physical Exam - Constitutional Additional comments: Pt is awake and alert. He is laying on his bed at medical center, no acute distress. Vital signs show no fever. - Neck Exam Neck exam: Negative for: Lymphadenopathy Additional comments: Supple - Respiratory Exam Respiratory Exam: NORMAL BREATHING PATTERN - Cardiovascular Exam Cardiovascular Exam: +S1, +S2 - GI/Abdominal Exam GI & Abdominal Exam: Soft. absent: Distended, Tenderness - Exam Exam: NORMAL INSPECTION Additional comments: exam: is normal, there is a beasley catheter in place due to ,scrotum is normal , no tender no masses, epididymis are normal. - Extremities Exam Extremities exam: Negative for: pedal edema Additional comments: There is a large hematoma on the left lower extremity. Otherwise no cyanosis or edema noted. Results - Vital Signs Recent Vital Signs: Last Vital Signs Temp 98.4 F 12/02/16 18:00 Pulse 80 12/02/16 18:00 Resp 17 12/02/16 18:00 BP 124/66 12/02/16 18:00 Pulse Ox 96 12/02/16 06:00 - Labs Result Diagrams: 12/01/16 07:30 12/01/16 07:30 - Impressions Impression: WBC 10.4 BUN 141 Creatinine 10.9 GFR 4 Potassium 7.5 Creatinine in was 1.3 Radiologic exam: no pertinent urologic x rays were done. Chest x-ray showed no active pulmonary disease. Assessment & Plan - Assessment and Plan (Free Text) Assessment: This is an 86 y/o male with acute renal failure, he has recent hip surgery. Given pt inability to urinate likely cause of the renal failure will be obstructive uropathy. It is unclear by nursing how much volume of urine was in his blood when the beasley was placed, however I will plan on leaving the beasley in place for now, check serial blood work regarding his renal function. Plan: Recommend a nephrologic consult given the hyperkalemia. Urologically the plan will be to start patient on alpha mera such as Tamsulosin 0.4 MG QD when his renal has improved. I will plan on leave the beasley catheter in place for now, for at least a few weeks until the patient is ambulatory, and to monitor his urine output at this point. If the renal function does rapidly improve with beasley drainage, plan on a voiding trial in a few weeks time, pt will need to be monitored regarding his post for residual. Thank you for allowing me to participate in the care of this patient. We will be following with you. - Date & Time Date: 11/28/16 Time: 15:00
== END 2016-12-02 19:08 | DRG 684 ==
LOC: ED 10:26 → ERH 12:15 → 2RNO 13:46
PROVIDERS: ADMIT Internal Medicine; ATTEND Internal Medicine
PROC: 0T9B70Z Drainage of Bladder with Drainage Device, Via Natural or Artificial Opening (ICD-10-PCS; principal; 2016-11-28)
DX: N17.9 Acute kidney failure, unspecified (principal); E87.5 Hyperkalemia; R33.9 Retention of urine, unspecified; I10 Essential (primary) hypertension; S72.142D Displaced intertrochanteric fracture of left femur, subsequent encounter for closed fracture with routine healing; W01.0XXD Fall on same level from slipping, tripping and stumbling without subsequent striking against object, subsequent encounter

== ENCOUNTER 2016-12-20 22:27 | Observation (INO) | payer MEDICARE ==
[2016-12-20 22:40] VITALS: BMI 32.4
[2016-12-20 23:24] LABS: URINE BILIRUBIN NEGATIVE (NEGATIVE); URINE BLOOD LARGE (NEGATIVE); URINE GLUCOSE (UA) NEGATIVE (NEGATIVE); URINE LEUKOCYTE ESTERASE LARGE Leu/uL (NEGATIVE); URINE NITRATE NEGATIVE (NEGATIVE); URINE PROTEIN 100 mg/dL (<30 mg/dL)
[2016-12-20 23:26] LABS: URINE APPEARANCE CLOUDY (CLEAR)
[2016-12-20 23:29] LABS: URINE BACTERIA MOD (NEG); URINE RBC TNTC /hpf (0-2); URINE WBC 15 - 20 /hpf (0-6)
[2016-12-21 00:05] LABS: BASO # 0.03 K/mm3 (0.0-2.0); BASO % 0.3 % (0.0-3.0); EOS # 0.2 (0.0-0.7); EOS % 1.4 % (1.5-5.0); GRAN # 8.06 (1.4-6.5); GRAN % 76.9 % (50.0-68.0); HEMOGLOBIN 9.6 gm/dL (14.0-18.0); LYMPH # 1.5 (1.2-3.4); LYMPH % 14.5 % (22.0-35.0); MEAN CELL VOLUME 87.9 fL (80.0-105.0); MEAN CORPUSCULAR HEMOGLOBIN 28.4 pg (25.0-35.0); MEAN CORPUSCULAR HGB CONC 32.3 g/dl (31.0-37.0); MONO # 0.7 (0.1-0.6); MONO % 6.9 % (1.0-6.0); PLATELET COUNT 380 10^3/uL (120.0-450.0); RBC 3.38 10^6/uL (3.5-6.1); RED CELL DISTRIBUTION WIDTH 14.2 % (11.5-14.5); WHITE BLOOD COUNT 10.5 10^3/ul (4.5-11.0)
--- NOTE | 2016-12-21 00:11 | ED PDOC ---
Arrival/HPI - General Chief Complaint: Male Genitourinary Time Seen by Provider: 12/20/16 22:49 Historian: Patient - History of Present Illness Narrative History of Present Illness (Text): 12/21/16 00:07 An 86 year old male presents to the emergency department from rehab complaining of decrease in urination. Patient reports he hasn't urinated all day. Patient denies any other complaints at this time. Symptom Onset: Sudden Symptom Course: Unchanged Activities at Onset: Rest Associated Symptoms (Text): none Past Medical History - Provider Review Nursing Documentation Reviewed: Yes - Infectious Disease Hx of Infectious Diseases: None - Cardiac Hx Hypertension: Yes - HEENT Hx HEENT Disorder: Yes Hx Deafness: Yes - Hematological/Oncological Hx Blood Transfusions: No Hx Blood Transfusion Reaction: No - Integumentary Other/Comment: left hip surgical site intact swelling bruising noted covered with sutures and dsd, small surgical incision with sutures below larger incisin site odette bruising and swelling noted, bruising to left hip/thigh/ inner left groin to inner thigh, bruising to left arm and dry thick brown scab to left elbow odette 3.5cm x 1.5cm, thick hard toenails, bruising posterior left knee and thigh, ble +2 pitting edema tight skin - Musculoskeletal/Rheumatological Hx Falls: Yes Hx Fractures: Yes (left femur) Hx Unsteady Gait: Yes Other/Comment: Muscle weakness - Psychiatric Hx Substance Use: No - Surgical History Other/Comment: Hip surgery. - Anesthesia Hx Anesthesia Reactions: No Hx Malignant Hyperthermia: No Family/Social History - Physician Review Nursing Documentation Reviewed: Yes Family/Social History: No Known Family HX Smoking Status: Never Smoked Hx Alcohol Use: No Hx Substance Use: No Allergies/Home Meds Allergies/Adverse Reactions: Allergies No Known Allergies Allergy (Verified 12/20/16 22:41) Home Medications: Home Meds Medication Instructions Recorded Confirmed Metoprolol Tartrate [Lopressor] 25 mg PO BID 11/28/16 12/20/16 Tamsulosin [Flomax] 0.4 mg PO DAILY 12/20/16 12/20/16 Review of Systems - Physician Review All systems were reviewed & negative as marked: Yes - Review of Systems Gastrointestinal: absent: Abdominal Pain Genitourinary Male: Urinary Output Changes Physical Exam Vital Signs Reviewed: Yes Vital Signs Pulse Resp BP Pulse Ox 12/20/16 22:40 94 H 16 137/78 96 Blood Pressure: Normal Pulse: Regular Respiratory Rate: Normal Appearance: Positive for: Well-Appearing, Non-Toxic, Comfortable Pain Distress: None Mental Status: Positive for: Alert and Oriented X 3 - Systems Exam Head: Present: Atraumatic, Normocephalic Pupils: Present: PERRL Extroacular Muscles: Present: EOMI Conjunctiva: Present: Normal Mouth: Present: Moist Mucous Membranes Neck: Present: Normal Range of Motion Respiratory/Chest: Present: Clear to Auscultation, Good Air Exchange. No: Respiratory Distress, Accessory Muscle Use Cardiovascular: Present: Regular Rate and Rhythm, Normal S1, S2. No: Murmurs Abdomen: Present: Normal Bowel Sounds. No: Tenderness, Distention, Peritoneal Signs Back: Present: Normal Inspection Upper Extremity: Present: Normal Inspection. No: Cyanosis, Edema Lower Extremity: Present: Normal Inspection. No: Edema Neurological: Present: GCS=15, CN II-XII Intact, Speech Normal Skin: Present: Warm, Dry, Normal Color. No: Rashes Psychiatric: Present: Alert, Oriented x 3, Normal Insight, Normal Concentration Medical Decision Making ED Course and Treatment: 12/21/16 00:12 Impression: An 86 year old male with decrease in urination. Differential Diagnosis included but are not limited to: UTI Plan: -- labs -- Urinalysis -- Maxipime -- Reassess and disposition pt with uti and urinary retention will start iv ab and obs dr arellano accepts case Progress Notes: Changed beasley, 1000 cc. 12/21/16 01:14 - Lab Interpretations Lab Results: 12/20/16 23:49 12/20/16 23:49 Lab Results 12/20/16 23:49: Sodium 136, Potassium 3.6, Chloride 102, Carbon Dioxide 24, Anion Gap 14, BUN 27 H, Creatinine 1.2, Est GFR ( Amer) > 60, Est GFR ( Non-Af Amer) 57, Random Glucose 157 H, Calcium 8.6, Total Bilirubin 0.6, AST 39 , ALT 44, Alkaline Phosphatase 97, Total Protein 6.6, Albumin 3.2, Globulin 3.4 , Albumin/Globulin Ratio 0.9 L 12/20/16 23:49: WBC 10.5, RBC 3.38 L, Hgb 9.6 L, Hct 29.7 L, MCV 87.9, MCH 28.4 , MCHC 32.3, RDW 14.2, Plt Count 380, MPV 9.0, Gran % 76.9 H, Lymph % (Auto) 14.5 L, [place] % (Auto) 6.9 H, Eos % (Auto) 1.4 L, Baso % (Auto) 0.3, Gran # 8.06 H, Lymph # 1.5, [place] # 0.7 H, Eos # 0.2, Baso # 0.03 12/20/16 23:17: Urine Color [place]rell, Urine Appearance Cloudy, Urine pH 7.0, Ur Specific [place] 1.020, Urine Protein 100 H, Urine Glucose (UA) Negative, Urine Ketones Negative, Urine Blood Large H, Urine Nitrate Negative, Urine Bilirubin Negative, Urine Urobilinogen 1.0 H, Ur Leukocyte Esterase Large H, Urine RBC Tntc, Urine WBC 15 - 20, Ur Epithelial Cells 3 - 4, Urine Bacteria Mod I have reviewed the lab results: Yes - Medication Orders Current Medication Orders: Acetaminophen (Tylenol 325mg Tab) 650 mg PO Q4H PRN PRN Reason: Fever >100.5 F Cefepime HCl (Maxipime 1gm) 1 gm in 100 mls @ 100 mls/hr IVPB Q24H JHON PRN Reason: Protocol Last Admin: 12/21/16 00:15 Dose: 100 mls/hr - Scribe Statement The provider has reviewed the documentation as recorded by the Nimesh Diaz Provider Scribe Attestation: All medical record entries made by the Nimesh were at my direction and personally dictated by me. I have reviewed the chart and agree that the record accurately reflects my personal performance of the history, physical exam, medical decision making, and the department course for this patient. I have also personally directed, reviewed, and agree with the discharge instructions and disposition. Disposition/Present on Arrival - Present on Arrival Any Indicators Present on Arrival: No History of DVT/PE: No History of Uncontrolled Diabetes: No Urinary Catheter: No History of Decub. Ulcer: No History Surgical Site Infection Following: None - Disposition Have Diagnosis and Disposition been Completed?: Yes Diagnosis: Urinary tract infection, Beasley catheter problem Disposition: HOSPITALIZED Disposition Time: 23:15 Condition: GOOD
[2016-12-21] MEDS: Cefepime 1gm in NS 100ml 1 GM/100 ML BAG IVPB SCH ×2 (00:15→22:46)
[2016-12-21 00:28] LABS: ALB/GLOB RATIO 0.9 (1.1-1.8); ALBUMIN 3.2 g/dL (3.0-4.8); ALT/SGPT 44 U/L (7-56); AST/SGOT 39 U/L (15-59); BLOOD UREA NITROGEN 27 mg/dL (7-21); CALCIUM 8.6 mg/dL (8.4-10.5); GFR AFRICAN-AMERICAN > 60; GFR NON-AFRICAN AMERICAN 57
[2016-12-21 18:08] LABS: BLOOD UREA NITROGEN 19 mg/dL (7-21); CALCIUM 8.5 mg/dL (8.4-10.5); GFR AFRICAN-AMERICAN > 60; GFR NON-AFRICAN AMERICAN > 60
[2016-12-22 07:40] VITALS: BP 127/71; PULSE 81; RESP 20; TEMP 98; O2SAT 95
--- NOTE | 2016-12-22 08:21 | HP ---
HISTORY OF PRESENT ILLNESS: This is an 86-year-old male known to my practice, usually sees Dr. Amadou Pisano, who fell and fractured his left hip, only one month ago. He presents to the emergency room, was treated surgically and went to subacute rehab facility. He completed his rehabilitation course at the Rehab Center and was discharged home. After being at home for a short while, he realized there was no urine output in his Awad catheter. He became more uncomfortable and came to the emergency room. The Awad catheter was cut and replaced, 2100 mL of urine was drained. The patient was admitted for overnight observation and to watch for post-obstructive diuresis. PAST MEDICAL HISTORY: Positive for diverticulosis in the colon many years ago and elevated PSA with extensive negative workup with his urologist, Dr. Hay in the past. SOCIAL HISTORY: He is , former smoker. Does not drink alcohol or caffeine. ALLERGIES: HE HAD AN ADVERSE REACTION TO MELOXICAM IN THE PAST. MEDICATIONS: He is taking only Flomax and metoprolol 25 mg b.i.d. REVIEW OF SYSTEMS: On multiple points is otherwise unremarkable. PHYSICAL EXAMINATION: GENERAL: The patient seems sitting out of bed in a chair in room 578, bed 1. He is quite awake, alert, sharp, clear and in good spirits. HEENT AND NECK: Head and neck are unremarkable. Conjunctivae pink. Mucous membranes are moist. Neck is supple without masses. CHEST: Clear. HEART: Regular, not tachycardic. ABDOMEN: Soft. EXTREMITIES: Show no edema. IMPRESSION: 1. Awad catheter malfunction. 2. Urinary tract infection noted on urinalysis. PLAN: Awad catheter has been replaced. The patient was admitted shortly when I received the phone cell at 12:02 a.m. Therefore, we will monitor today for overnight observation, and as long as there is no post-obstructive diuresis with normal labs later today, there is a very high probability to be ready for discharge to home tomorrow after overnight observation. Tim Pisano MD
== END 2016-12-22 13:49 | disposition home or self-care (01) ==
LOC: ED 22:27 → ERH 23:51 → 5RSO 12-21 02:19
PROVIDERS: ADMIT Internal Medicine; ATTEND Internal Medicine
DX: T83.018A Breakdown (mechanical) of other urinary catheter, initial encounter (principal); N39.0 Urinary tract infection, site not specified; K57.90 Diverticulosis of intestine, part unspecified, without perforation or abscess without bleeding; I10 Essential (primary) hypertension; S72.002D Fracture of unspecified part of neck of left femur, subsequent encounter for closed fracture with routine healing; W19.XXXD Unspecified fall, subsequent encounter; Z87.891 Personal history of nicotine dependence; Y84.6 Urinary catheterization as the cause of abnormal reaction of the patient, or of later complication, without mention of misadventure at the time of the procedure
CPT/HCPCS: 80048; 80053; 81001; 85025; 87040; 87086; 96365; 99285; G0378; J0692

== ENCOUNTER 2017-04-22 18:50 | Inpatient (IN) | payer MEDICARE ==
[2017-04-22 18:58] VITALS: BMI 28.8
[2017-04-22] MEDS ORDERED: Sodium Chloride 0.9% 1,000 ML IV STA (19:37)
[2017-04-22 20:20] LABS: VENOUS BLOOD GAS BASE EXCESS 1.8 mmol/L (0.0-2.0); VENOUS BLOOD PH 7.45 (7.32-7.43)
[2017-04-22 20:21] LABS: PH,URINE 6.5 (4.7-8.0); URINE APPEARANCE CLOUDY (CLEAR); URINE BILIRUBIN NEGATIVE (NEGATIVE); URINE BLOOD SMALL (NEGATIVE); URINE COLOR YELLOW (YELLOW); URINE GLUCOSE (UA) NEGATIVE (NEGATIVE); URINE KETONE NEGATIVE (NEGATIVE); URINE LEUKOCYTE ESTERASE LARGE Leu/uL (NEGATIVE); URINE PROTEIN 30 mg/dL (<30 mg/dL); URINE UROBILINOGEN 0.2 E.U./dL (<1 E.U./dL)
[2017-04-22 20:24] LABS: BASO # 0.02 K/mm3 (0.0-2.0); BASO % 0.1 % (0.0-3.0); EOS # 0.1 (0.0-0.7); EOS % 0.8 % (1.5-5.0); GRAN # 10.23 (1.4-6.5); GRAN % 76.8 % (50.0-68.0); HEMATOCRIT 42.7 % (42.0-52.0); LYMPH # 1.7 (1.2-3.4); LYMPH % 12.8 % (22.0-35.0); MEAN CELL VOLUME 86.3 fl (80.0-105.0); MEAN CORPUSCULAR HEMOGLOBIN 29.1 pg (25.0-35.0); MEAN CORPUSCULAR HGB CONC 33.7 g/dl (31.0-37.0); MEAN PLATELET VOLUME 9.8 fl (7.0-11.0); MONO # 1.3 (0.1-0.6); MONO % 9.5 % (1.0-6.0); RED CELL DISTRIBUTION WIDTH 15.4 % (11.5-14.5); WHITE BLOOD COUNT 13.3 10^3/ul (4.5-11.0)
[2017-04-22 20:28] LABS: INR 1.21 (0.93-1.08); PARTIAL THROMBOPLASTIN TIME 30.5 Seconds (25.1-36.5)
[2017-04-22] MEDS ORDERED: Cefepime IV 2 gm in NS 2 GM/100 ML BAG IVPB STA (20:30)
[2017-04-22 20:33] LABS: URINE WBC TNTC /hpf (0-6)
[2017-04-22 20:34] LABS: URINE BACTERIA MANY (NEG)
[2017-04-22 20:58] LABS: ALKALINE PHOSPHATASE 93 U/L (38-126); ALT/SGPT 25 U/L (7-56); AST/SGOT 22 U/L (17-59); BILIRUBIN,TOTAL 0.9 mg/dL (0.2-1.3); BLOOD UREA NITROGEN 24 mg/dL (7-21); CALCIUM 9.1 mg/dL (8.4-10.5); CARBON DIOXIDE 25 mmol/L (21-33); CHLORIDE 105 mmol/L (98-107); GFR AFRICAN-AMERICAN > 60; GLUCOSE,RANDOM 146 mg/dL (70-110); LIPASE 81 U/L (23-300); PHOSPHOROUS 2.7 mg/dL (2.5-4.5); POTASSIUM 4.1 mmol/L (3.6-5.0); SODIUM 137 mmol/L (132-148); TOTAL PROTEIN 7.3 g/dL (5.8-8.3)
[2017-04-22 21:08] LABS: TROPONIN I 0.02 ng/mL
--- NOTE | 2017-04-22 21:21 | ED PDOC ---
Arrival/HPI - General Chief Complaint: Male Genitourinary Time Seen by Provider: 04/22/17 19:00 Historian: Patient - History of Present Illness Narrative History of Present Illness (Text): 04/22/17 21:00 A 86 year old male, whose past medical history includes urinary retention and chronic beasley catheter, presents to the emergency department complaining of not seeing urine in his catheter since yesterday evening. He notes lower abdominal pain and distention. The patient denies fever, chest pain, shortness of breath, or any other complaints at this time. PMD: Dr. 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 - Anesthesia Hx Anesthesia Reactions: No Hx Malignant Hyperthermia: No Family/Social History - Physician Review Nursing Documentation Reviewed: Yes Family/Social History: No Known Family HX Smoking Status: Former Smoker Hx Alcohol Use: No Hx Substance Use: No Allergies/Home Meds Allergies/Adverse Reactions: Allergies No Known Allergies Allergy (Verified 12/20/16 22:41) Home Medications: Home Meds Medication Instructions Recorded Confirmed Metoprolol Tartrate [Lopressor] 25 mg PO BID 11/28/16 04/22/17 Tamsulosin [Flomax] 0.4 mg PO DAILY 12/20/16 04/22/17 Review of Systems - Physician Review All systems were reviewed & negative as marked: Yes - Review of Systems Gastrointestinal: Abdominal Pain (lower abdominal pain), Other (abdominal distention ) Genitourinary Male: Urinary Output Changes Physical Exam Vital Signs Reviewed: Yes Vital Signs Temp Pulse Resp BP Pulse Ox 04/22/17 21:31 89 17 129/69 96 04/22/17 19:36 101.0 F H 04/22/17 19:03 99.7 F H 101 H 138/91 H 91 L Temperature: Febrile Blood Pressure: Hypertensive Pulse: Tachycardic Respiratory Rate: Apneic Appearance: Positive for: Non-Toxic, Comfortable Pain Distress: None Mental Status: Positive for: Alert and Oriented X 3 - Systems Exam Head: Present: Atraumatic, Normocephalic Pupils: Present: PERRL Conjunctiva: Present: Normal Mouth: Present: Moist Mucous Membranes Pharnyx: Present: Normal. No: ERYTHEMA, EXUDATE Neck: Present: Normal Range of Motion Respiratory/Chest: Present: Clear to Auscultation, Good Air Exchange. No: Respiratory Distress, Accessory Muscle Use Cardiovascular: Present: Regular Rate and Rhythm, Normal S1, S2. No: Murmurs Abdomen: Present: Distention, Normal Bowel Sounds. No: Tenderness, Peritoneal Signs Genitourinary Male: Present: Other (Initial beasley in place with no output) Back: Present: Normal Inspection Upper Extremity: Present: Normal Inspection. No: Cyanosis, Edema Lower Extremity: Present: Normal Inspection. No: Edema Neurological: Present: GCS=15, CN II-XII Intact, Speech Normal Skin: Present: Warm, Dry, Normal Color. No: Rashes Psychiatric: Present: Alert, Oriented x 3, Normal Insight, Normal Concentration Medical Decision Making ED Course and Treatment: 04/22/17 21:00 Impression: A 86 year old male with catheter complications. Differential Diagnosis included but are not limited to: Urinary tract infection vs. pneumonia Plan: -- EKG -- Chest X-ray -- Cefepime, IV fluids -- Labs -- Beasley -- Reassess and disposition Progress Notes: 04/22/17 21:50 Beasley catheter changed with output of about 800 cc or urine. Fever of 101 is noted; WBC is 13.3K; lactic acid normal, so no code sepsis. Patient will need blood and urine cultures to be followed and iv antibiotics and admission. Case discussed with Dr. Tim Pisano for admission. - Lab Interpretations Lab Results: 04/22/17 19:58 04/22/17 20:30 Lab Results 04/22/17 20:30: Sodium 137, Chloride 105, Potassium 4.1, Carbon Dioxide 25, Anion Gap 11, BUN 24 H, Creatinine 1.0, Est GFR ( Amer) > 60, Est GFR ( Non-Af Amer) > 60, Random Glucose 146 H, Calcium 9.1, Phosphorus 2.7, Magnesium 2.0, Total Bilirubin 0.9, AST 22, ALT 25, Alkaline Phosphatase 93, Lactate Dehydrogenase 402, Total Creatine Kinase 66, Troponin I 0.02, Total Protein 7.3 , Albumin 3.7, Globulin 3.6, Albumin/Globulin Ratio 1.0 L, Lipase 81 04/22/17 19:58: pO2 60 H, VBG pH 7.45 H, VBG pCO2 37.0 L, VBG HCO3 25.7, VBG Total CO2 26.8, VBG O2 Sat (Calc) 93.1 H, VBG Base Excess 1.8, VBG Potassium 4.4 , Sodium 136.0, Chloride 105.0, Glucose 166 H, Lactate 1.6, FiO2 21.0, Venous Blood Potassium 4.4 04/22/17 19:58: Urine Color Yellow, Urine Appearance Cloudy, Urine pH 6.5, Ur Specific [place] 1.020, Urine Protein 30 H, Urine Glucose (UA) Negative, Urine Ketones Negative, Urine Blood Small H, Urine Nitrate Positive H, Urine Bilirubin Negative, Urine Urobilinogen 0.2, Ur Leukocyte Esterase Large H, Urine RBC 10 - 15, Urine WBC Tntc, Ur Epithelial Cells 4 - 5, Urine Bacteria Many 04/22/17 19:58: PT 13.2 H, INR 1.21 H, APTT 30.5 04/22/17 19:58: WBC 13.3 H D, RBC 4.95, Hgb 14.4, Hct 42.7, MCV 86.3, MCH 29.1, MCHC 33.7, RDW 15.4 H, Plt Count 209, MPV 9.8, Gran % 76.8 H, Lymph % (Auto) 12.8 L, [place] % (Auto) 9.5 H, Eos % (Auto) 0.8 L, Baso % (Auto) 0.1, Gran # 10.23 H, Lymph # 1.7, [place] # 1.3 H, Eos # 0.1, Baso # 0.02 - RAD Interpretation Narrative RAD Interpretations (Text): 04/22/17 21:56 CXR: nad Radiology Orders: 04/22/17 19:36 CHEST PORTABLE [RAD] Stat - EKG Interpretation EKG Interpretation (Text): 04/22/17 21:56 nsr @ 97 with pvcs; poor R wave progression; QRS is [address]/T changes c/w previous. Interpreted by ED Physician: Yes Type: 12 lead EKG Comparison: Similar to previous EKG (12/09) - Medication Orders Current Medication Orders: Discontinued Medications Sodium Chloride (Sodium Chloride 0.9%) 1,000 mls @ 999 mls/hr IV .Q1H1M STA Stop: 04/22/17 20:37 Last Admin: 04/22/17 20:17 Dose: 999 mls/hr eMAR Start Stop Document 04/22/17 20:17 [email or web address] (Rec: 04/22/17 20:18 [email or web address] [facility] [id number] Intravenous Solution Start Date 04/22/17 Start Time 20:17 End Date 04/22/17 Cefepime HCl (Maxipime 2gm) 2 gm in 100 mls @ 100 mls/hr IVPB STAT STA PRN Reason: Protocol Stop: 04/22/17 21:29 Last Admin: 04/22/17 20:51 Dose: 100 mls/hr eMAR Start Stop Document 04/22/17 20:51 [email or web address] (Rec: 04/22/17 20:51 [email or web address] [facility] [id number] Intravenous Solution Start Date 04/22/17 Start Time 20:51 End Date 04/22/17 - Scribe Statement The provider has reviewed the documentation as recorded by the Heladioibrico Parrish Provider Scribe Attestation: All medical record entries made by the Scribe were at my direction and personally dictated by me. I have reviewed the chart and agree that the record accurately reflects my personal performance of the history, physical exam, medical decision making, and the department course for this patient. I have also personally directed, reviewed, and agree with the discharge instructions and disposition. Disposition/Present on Arrival - Present on Arrival Any Indicators Present on Arrival: Yes History of DVT/PE: No History of Uncontrolled Diabetes: No Urinary Catheter: Yes History of Decub. Ulcer: No History Surgical Site Infection Following: None - Disposition Have Diagnosis and Disposition been Completed?: Yes Diagnosis: Urinary tract infection, Fever, Urinary retention Disposition: HOSPITALIZED Disposition Time: 21:10 Patient Plan: Admission Patient Problems: Current Active Problems Problem Status Onset Fever Acute Urinary retention Acute Urinary tract infection Acute Condition: FAIR Referrals: Amadou Pisano MD [Primary Care Provider] - Follow up with primary Forms: [employer] ([place])
[2017-04-22] MEDS ORDERED: Sodium Chloride 0.9% 500 ML IV STA (22:38)
--- NOTE | 2017-04-23 09:54 | RAD ---
HISTORY: fever COMPARISON: 11/28/2016 1049 hours FINDINGS: LUNGS: Interval opacification of the left inferolateral hemithorax - layering fluid and/or pleural base pathology here suspect. Concomitant atelectasis infiltrate left lung base in addition and/or obscured by suspect left layering pleural fluid also needs to be considered. No right lung consolidation appreciated. Projections apical lordotic PLEURA: No significant pleural effusion identified, no pneumothorax apparent. CARDIOVASCULAR: Cardiomegaly OSSEOUS STRUCTURES: No significant abnormalities. VISUALIZED UPPER ABDOMEN: Normal. OTHER FINDINGS: None. IMPRESSION: Interval pathology left inferolateral pleural hemithorax -layering left inferolateral pleural effusion with or without pleural thickening and also with without concomitant subsegmental atelectasis infiltrate here are considerations. Consider right lateral decubital imaging for better a right lateral CT chest imaging without IV contrast enhancement
[2017-04-23] MEDS ORDERED: cefTRIAXone 1,000 MG in Sodium Chloride 0.9% 50 ML IVPB SCH (10:15)
[2017-04-23 10:52] LABS: HEMATOCRIT 40.6 % (42.0-52.0); MEAN CELL VOLUME 86.2 fl (80.0-105.0); MEAN CORPUSCULAR HEMOGLOBIN 28.7 pg (25.0-35.0); MEAN CORPUSCULAR HGB CONC 33.3 g/dl (31.0-37.0); MEAN PLATELET VOLUME 9.7 fl (7.0-11.0); RED CELL DISTRIBUTION WIDTH 15.2 % (11.5-14.5); WHITE BLOOD COUNT 9.8 10^3/ul (4.5-11.0)
[2017-04-23 11:18] LABS: BLOOD UREA NITROGEN 18 mg/dL (7-21); CALCIUM 9.1 mg/dL (8.4-10.5); CARBON DIOXIDE 26 mmol/L (21-33); CHLORIDE 106 mmol/L (98-107); GFR AFRICAN-AMERICAN > 60; GLUCOSE,RANDOM 118 mg/dL (70-110); POTASSIUM 4.1 mmol/L (3.6-5.0); SODIUM 138 mmol/L (132-148)
[2017-04-23] MEDS: cefTRIAXone 1 gm in D5W 100ml IVPB SCH (11:22)
--- NOTE | 2017-04-23 23:47 | CARD ---
APPROVED REPORT EKG Measurement Heart [id number] <Conclusion> Sinus rhythm with occasional premature ventricular complexes [id number] Abnormal ECG
[2017-04-24 07:38] LABS: HEMATOCRIT 39.6 % (42.0-52.0); MEAN CELL VOLUME 86.8 fl (80.0-105.0); MEAN CORPUSCULAR HEMOGLOBIN 28.7 pg (25.0-35.0); MEAN CORPUSCULAR HGB CONC 33.1 g/dl (31.0-37.0); MEAN PLATELET VOLUME 9.5 fl (7.0-11.0); RED CELL DISTRIBUTION WIDTH 15.1 % (11.5-14.5); WHITE BLOOD COUNT 8.9 10^3/ul (4.5-11.0)
[2017-04-24 09:01] VITALS: BP 132/82; PULSE 74; RESP 22; TEMP 97.4; O2SAT 99
[2017-04-24 09:15] LABS: BLOOD UREA NITROGEN 17 mg/dL (7-21); CARBON DIOXIDE 29 mmol/L (21-33); CHLORIDE 105 mmol/L (98-107); GFR AFRICAN-AMERICAN > 60; GLUCOSE,RANDOM 108 mg/dL (70-110); POTASSIUM 4.4 mmol/L (3.6-5.0); SODIUM 141 mmol/L (132-148)
[2017-04-24] MEDS: cefTRIAXone 1 gm in D5W 100ml IVPB SCH (09:48)
--- NOTE | 2017-04-25 22:51 | PN ---
DAILY PROGRESS NOTE DATE: 04/24/2017 SUBJECTIVE: Seen and admitted by Dr. Amadou Pisano yesterday. Mr. Galarza remains in room 574, bed 1. He has received antibiotics and IV fluids after his Awad was adjusted. He is comfortable and clinically improved and ready for discharge, so Dr. Tobar called the discharge order in earlier today and we will follow up with the patient in the office within a week. Tim Pisano MD
== END 2017-04-24 17:28 | disposition home health service (06) | DRG 699 ==
LOC: ED 18:50 → ERH 21:42 → 5RSO 23:14
PROVIDERS: ADMIT Internal Medicine; ATTEND Internal Medicine
PROC: 0T2BX0Z Change Drainage Device in Bladder, External Approach (ICD-10-PCS; principal; 2017-04-22)
DX: T83.098A Other mechanical complication of other urinary catheter, initial encounter (principal); T83.511A Infection and inflammatory reaction due to indwelling urethral catheter, initial encounter; N39.0 Urinary tract infection, site not specified; Y84.6 Urinary catheterization as the cause of abnormal reaction of the patient, or of later complication, without mention of misadventure at the time of the procedure; H26.9 Unspecified cataract; I10 Essential (primary) hypertension

== ENCOUNTER 2017-05-25 09:43 | Emergency (ER) | payer MEDICARE ==
[2017-05-25 09:43] VITALS: BMI 28.8
--- NOTE | 2017-05-25 11:52 | ED PDOC ---
Arrival/HPI - General Chief Complaint: GI Problem Time Seen by Provider: 05/25/17 10:35 Historian: Patient - History of Present Illness Narrative History of Present Illness (Text): 05/25/17 11:47 86yo male with PMHx of BPH present with complaint of urinary retention. He have a Awad in place . States he has not been able to urinate since last night. He reports history of similar symptom once every month. He denies pain, fever, chills, back pain, hematuria, nausea. vomiting, any other complaint. 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 - Anesthesia Hx Anesthesia Reactions: No Hx Malignant Hyperthermia: No Family/Social History - Physician Review Nursing Documentation Reviewed: Yes Family/Social History: Unknown Family HX Smoking Status: Never Smoked Hx Alcohol Use: No Hx Substance Use: No Allergies/Home Meds Allergies/Adverse Reactions: Allergies No Known Allergies Allergy (Verified 05/25/17 10:36) Review of Systems - Physician Review All systems were reviewed & negative as marked: Yes - Review of Systems Constitutional: Normal Eyes: Normal ENT: Normal Respiratory: Normal Cardiovascular: Normal Gastrointestinal: Normal Genitourinary Male: Urinary Output Changes (Urinary retention) Musculoskeletal: Normal Skin: Normal Neurological: Normal Endocrine: Normal Hemo/Lymphatic: Normal Psychiatric: Normal Physical Exam Vital Signs Reviewed: Yes Vital Signs Pulse Resp BP Pulse Ox 05/25/17 11:43 82 18 146/82 98 Temperature: Afebrile Blood Pressure: Normal Pulse: Regular Respiratory Rate: Normal Appearance: Positive for: Well-Appearing, Non-Toxic, Comfortable Pain Distress: None Mental Status: Positive for: Alert and Oriented X 3 - Systems Exam Head: Present: Atraumatic, Normocephalic Pupils: Present: PERRL Extroacular Muscles: Present: EOMI Conjunctiva: Present: Normal Mouth: Present: Moist Mucous Membranes Neck: Present: Normal Range of Motion Respiratory/Chest: Present: Clear to Auscultation, Good Air Exchange. No: Respiratory Distress, Accessory Muscle Use Cardiovascular: Present: Regular Rate and Rhythm, Normal S1, S2. No: Murmurs Abdomen: Present: Distention, Normal Bowel Sounds, Other (Soft). No: Tenderness , Peritoneal Signs, Rebound, Guarding, McBurney's Point Tender, Rovsing's Sign Present Genitourinary Male: Present: Other (Awad and bag noted in place) Back: Present: Normal Inspection Upper Extremity: Present: Normal Inspection. No: Cyanosis, Edema Lower Extremity: Present: Normal Inspection. No: Edema Neurological: Present: GCS=15, CN II-XII Intact, Speech Normal Skin: Present: Warm, Dry, Normal Color. No: Rashes Psychiatric: Present: Alert, Oriented x 3, Normal Insight, Normal Concentration Medical Decision Making ED Course and Treatment: 05/25/17 11:50 Pt is comfortable in ED. He have a Awad and bag in place on presentation . He have pelvic distention without tenderness on exam. Awad was changed in ED and >1000 ml of urine noted in ED. UA ordered and pending. Case was DW Dr. hay. He recommends that pt be DC home and f/u with hi. PT was also seen in ED by Dr. Quijano. 05/25/17 13:36 PT have UTI and was placed on Keflex. Was notified that he will be called if organism not sensitive to keflex after UC. - Lab Interpretations Lab Results: Lab Results 05/25/17 12:45: Urine Color Yellow, Urine Appearance Sl cloudy, Urine pH 7.0, Ur Specific [place] 1.015, Urine Protein Trace H, Urine Glucose (UA) Negative, Urine Ketones Negative, Urine Blood Trace-intact H, Urine Nitrate Negative, Urine Bilirubin Negative, Urine Urobilinogen 0.2, Ur Leukocyte Esterase Large H , Urine RBC 5 - 10, Urine WBC Tntc, Ur Epithelial Cells 6 - 8, Urine Bacteria Many Disposition/Present on Arrival - Present on Arrival Any Indicators Present on Arrival: No History of DVT/PE: No History of Uncontrolled Diabetes: No Urinary Catheter: Yes History of Decub. Ulcer: No History Surgical Site Infection Following: None - Disposition Have Diagnosis and Disposition been Completed?: Yes Diagnosis: Urinary retention, Awad catheter problem, Urinary tract infection Disposition: HOME/ ROUTINE Disposition Time: 13:35 Patient Plan: Discharge Patient Problems: Current Active Problems Problem Status Onset Awad catheter problem Acute Urinary retention Acute Condition: STABLE Discharge Instructions (ExitCare): Urinary Tract Infection in Men (ED), Catheter-associated Urinary Tract Infection (ED) Additional Instructions: Follow up with your private Doctor/Urologist Return to ED for any new or worsening symptoms Prescriptions: Cephalexin [cephalexin] 500 mg PO QID #28 cap Referrals: Amadou Pisano MD [Primary Care Provider] - Follow up with primary Adolph Hay MD [Staff Provider] - Follow up with primary Forms: [employer] ([place])
[2017-05-25 13:05] VITALS: RESP 18; O2SAT 98
[2017-05-25 13:25] LABS: URINE BILIRUBIN NEGATIVE (NEGATIVE); URINE BLOOD TRACE-INTACT (NEGATIVE); URINE GLUCOSE (UA) NEGATIVE (NEGATIVE); URINE LEUKOCYTE ESTERASE LARGE Leu/uL (NEGATIVE); URINE NITRATE NEGATIVE (NEGATIVE); URINE PROTEIN TRACE mg/dL (<30 mg/dL); URINE UROBILINOGEN 0.2 E.U./dL (<1 E.U./dL)
[2017-05-25 13:29] LABS: URINE APPEARANCE SL CLOUDY (CLEAR); URINE COLOR YELLOW (YELLOW)
[2017-05-25 13:32] LABS: URINE BACTERIA MANY (NEG); URINE WBC TNTC /hpf (0-6)
[2017-05-25 13:43] VITALS: BP 140/78; PULSE 78
== END 2017-05-25 13:43 | disposition home or self-care (01) ==
LOC: ED 09:43
DX: R33.9 Retention of urine, unspecified (principal); N39.0 Urinary tract infection, site not specified; Z46.6 Encounter for fitting and adjustment of urinary device

== ENCOUNTER 2017-06-23 04:15 | Emergency (ER) | payer MEDICARE ==
[2017-06-23 04:16] VITALS: BMI 28.8
[2017-06-23 04:31] VITALS: RESP 16
--- NOTE | 2017-06-23 04:57 | ED PDOC ---
Arrival/HPI - General Chief Complaint: Male Genitourinary Time Seen by Provider: 06/23/17 04:46 Historian: Patient - History of Present Illness Narrative History of Present Illness (Text): 06/23/17 04:56 Higinio Galarza is an 87 year old male, whose past medical history includes BPH , who presents to the Emergency department complaining of urinary retention. Patient states his Awad is clogged and has not been draining since yesterday evening. Patient states he has experienced similar symptoms in the past. Patient denies any abdominal pain, nausea, vomiting, diarrhea, hematuria, back pain, fever, chills, or any other complaints. Urologist: Dr. 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 - Anesthesia Hx Anesthesia Reactions: No Hx Malignant Hyperthermia: No Family/Social History - Physician Review Nursing Documentation Reviewed: Yes Family/Social History: Unknown Family HX Smoking Status: Never Smoked Hx Alcohol Use: No Hx Substance Use: No Allergies/Home Meds Allergies/Adverse Reactions: Allergies No Known Allergies Allergy (Verified 06/23/17 04:24) Home Medications: Home Meds Medication Instructions Recorded Confirmed Tamsulosin [Flomax] 0.4 mg PO DAILY 01/29/18 01/29/18 Review of Systems - Physician Review All systems were reviewed & negative as marked: Yes - Review of Systems Constitutional: Normal. absent: Fevers Eyes: Normal ENT: Normal Respiratory: Normal. absent: SOB, Cough Cardiovascular: Normal. absent: Chest Pain Gastrointestinal: Normal. absent: Abdominal Pain, Diarrhea, Nausea, Vomiting Genitourinary Male: Urinary Output Changes (+urinary retention). absent: Dysuria, Frequency, Hematuria Musculoskeletal: Normal. absent: Back Pain, Neck Pain Skin: Normal. absent: Rash Neurological: Normal. absent: Headache, Dizziness Endocrine: Normal Hemo/Lymphatic: Normal Psychiatric: Normal Physical Exam Vital Signs Reviewed: Yes Vital Signs Temp Pulse Resp BP Pulse Ox 06/23/17 04:30 97.5 F L 73 16 128/69 95 Temperature: Afebrile Blood Pressure: Normal Pulse: Regular Respiratory Rate: Normal Appearance: Positive for: Well-Appearing, Non-Toxic, Comfortable Pain Distress: None Mental Status: Positive for: Alert and Oriented X 3 - Systems Exam Head: Present: Atraumatic, Normocephalic Pupils: Present: PERRL Extroacular Muscles: Present: EOMI Conjunctiva: Present: Normal Mouth: Present: Moist Mucous Membranes Neck: Present: Normal Range of Motion Respiratory/Chest: Present: Clear to Auscultation, Good Air Exchange. No: Respiratory Distress, Accessory Muscle Use Cardiovascular: Present: Regular Rate and Rhythm, Normal S1, S2. No: Murmurs Abdomen: Present: Distention (Suprapubic distention), Normal Bowel Sounds. No: Tenderness, Peritoneal Signs Back: Present: Normal Inspection. No: CVA Tenderness, Midline Tenderness, Paraspinal Tenderness Upper Extremity: Present: Normal Inspection. No: Cyanosis, Edema Lower Extremity: Present: Normal Inspection. No: Edema Neurological: Present: GCS=15, CN II-XII Intact, Speech Normal Skin: Present: Warm, Dry, Normal Color. No: Rashes Psychiatric: Present: Alert, Oriented x 3, Normal Insight, Normal Concentration Medical Decision Making ED Course and Treatment: 06/23/17 04:56 Impression: 87 year old male complaining of urinary retention secondary to obstructed Awad. Differential Diagnosis included but are not limited to: urinary retention vs. BPH vs. obstructed Awad Plan: -- Awad Catheter replacement -- Reassess and disposition Prior Visits: Notes and results from previous visits were reviewed. On 05/25/2017, pt was seen in the Emergency department for urinary retention. Awad catheter changed and pt was d/c home. Progress Notes: Awad catheter changed by RN. Draining urine without difficulty. 06/23/17 05:[address] Hay, who is aware and states pt can f/u outpt in his office this week. 06/23/17 05:28 Pt reports immediate relief after Awad replacement. I have discussed the results and plan with the patient, who expresses understanding. Patient in agreement with plan to be discharged home. Patient is stable for discharge. Patient was instructed to follow up with physician or return if symptoms worsen or new concerning symptoms arise. - Scribe Statement The provider has reviewed the documentation as recorded by the Nimesh Ta Provider Scribe Attestation: All medical record entries made by the Scribe were at my direction and personally dictated by me. I have reviewed the chart and agree that the record accurately reflects my personal performance of the history, physical exam, medical decision making, and the department course for this patient. I have also personally directed, reviewed, and agree with the discharge instructions and disposition. Disposition/Present on Arrival - Present on Arrival Any Indicators Present on Arrival: No History of DVT/PE: No History of Uncontrolled Diabetes: No Urinary Catheter: Yes (#16 2wf) History of Decub. Ulcer: No History Surgical Site Infection Following: None - Disposition Have Diagnosis and Disposition been Completed?: Yes Diagnosis: Obstructed Awad catheter, Urinary retention Disposition: HOME/ ROUTINE Disposition Time: 05:28 Patient Plan: Discharge Patient Problems: Current Active Problems Problem Status Onset Obstructed Awad catheter Acute Urinary retention Acute Condition: GOOD Discharge Instructions (ExitCare): Awad Catheter Placement and Care (ED), Urinary Leg Bag (GEN) Additional Instructions: Follow up with this week as scheduled Forms: [email or web address] (Ugandan)
[2017-06-23 05:50] VITALS: BP 134/74; PULSE 65; TEMP 97.6; O2SAT 100
== END 2017-06-23 06:01 | disposition home or self-care (01) ==
LOC: ED 04:15
DX: R33.9 Retention of urine, unspecified (principal); T83.098A Other mechanical complication of other urinary catheter, initial encounter; Y84.8 Other medical procedures as the cause of abnormal reaction of the patient, or of later complication, without mention of misadventure at the time of the procedure; Y92.89 Other specified places as the place of occurrence of the external cause

== ENCOUNTER 2017-06-27 23:08 | Emergency (ER) | payer MEDICARE ==
[2017-06-27 23:09] VITALS: BMI 28.8
[2017-06-27 23:26] VITALS: BP 129/70; RESP 18; TEMP 98.6; O2SAT 94
[2017-06-27 23:29] VITALS: PULSE 77
--- NOTE | 2017-06-28 00:04 | ED PDOC ---
Arrival/HPI - General Chief Complaint: Male Genitourinary Time Seen by Provider: 06/27/17 23:20 Historian: Patient - History of Present Illness Narrative History of Present Illness (Text): 06/27/17 23:58 87 year old male, whose past medical history includes BPH, who presents to the Emergency department complaining of multiple episodes of urinary retention. Patient reports no urinary output of Awad for the last 6 hours. Patient abdomen becoming distended and reports his last Awad Cath was changed 2 days ago. Patient reports constipation, but denies any fever, chills, chest pain, shortness of breath, nausea, vomiting, diarrhea, abdominal pain, dysuria, urinary frequency, hematuria, headache, dizziness, or any other complaints. Urologist: Dr. 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 - Anesthesia Hx Anesthesia Reactions: No Hx Malignant Hyperthermia: No Family/Social History - Physician Review Nursing Documentation Reviewed: Yes Family/Social History: No Known Family HX Smoking Status: Never Smoked Hx Alcohol Use: No Hx Substance Use: No Allergies/Home Meds Allergies/Adverse Reactions: Allergies No Known Allergies Allergy (Verified 06/27/17 23:25) Home Medications: Home Meds Medication Instructions Recorded Confirmed Tamsulosin [Flomax] 0.4 mg PO DAILY 06/23/17 06/23/17 Review of Systems - Physician Review All systems were reviewed & negative as marked: Yes - Review of Systems Constitutional: absent: Fevers, Other (Chills) Respiratory: absent: SOB Cardiovascular: absent: Chest Pain Gastrointestinal: absent: Abdominal Pain, Diarrhea, Nausea, Vomiting Genitourinary Male: Urinary Output Changes (Urinary retention). absent: Dysuria , Frequency, Hematuria Neurological: absent: Headache, Dizziness Physical Exam Vital Signs Reviewed: Yes Vital Signs Temp Pulse Resp BP Pulse Ox 06/27/17 23:26 98.6 F 77 18 129/70 94 L 06/27/17 23:25 98.6 F 75 18 129/70 94 L Temperature: Afebrile Blood Pressure: Normal Pulse: Regular Respiratory Rate: Normal Appearance: Positive for: Well-Appearing, Non-Toxic, Comfortable, Other (Obese) Pain Distress: None Mental Status: Positive for: Alert and Oriented X 3 - Systems Exam Head: Present: Atraumatic, Normocephalic Pupils: Present: PERRL Extroacular Muscles: Present: EOMI Conjunctiva: Present: Normal Mouth: Present: Moist Mucous Membranes Neck: Present: Normal Range of Motion Respiratory/Chest: Present: Clear to Auscultation, Good Air Exchange. No: Respiratory Distress, Accessory Muscle Use Cardiovascular: Present: Regular Rate and Rhythm, Normal S1, S2. No: Murmurs Abdomen: Present: Tenderness (Suprapubic tenderness), Distention (Slightly). No : Hernias Genitourinary Male: Present: Other (Awad cath in place with no urine output. ) Back: Present: Normal Inspection Upper Extremity: Present: Normal Inspection. No: Cyanosis, Edema Lower Extremity: Present: Normal Inspection. No: Edema ((-) Peripheral edema) Neurological: Present: GCS=15, CN II-XII Intact, Speech Normal Skin: Present: Warm, Dry, Normal Color. No: Rashes Psychiatric: Present: Alert, Oriented x 3, Normal Insight, Normal Concentration Medical Decision Making ED Course and Treatment: 06/27/17 23:20 Impression: 87 year old male presents to the Emergency department complaining of urinary retention with last urinary output 6 hours ago. Plan: -- Awad Catheter replacement -- Reassess and disposition Prior Visits: Notes and results from previous visits were reviewed. Patient was last seen in the emergency department on 06/23/17 presents complaining of urinary retention. Patient was discharged. Progress Notes: 06/27/17 23:58 Awad Catheter replacement done by Nurse Paul using an 18 [place] Catheter. Awad subsequent free flow of yellow urine. Crystals were noted to be clotted in the cath. Patient feels better scheduled for surgery Friday and would like to go home. I have discussed the results and plan with the patient, who expresses understanding. Patient in agreement with plan to be discharged home. Patient is stable for discharge. Patient was instructed to follow up with physician or return if symptoms worsen or new concerning symptoms arise. - Scribe Statement The provider has reviewed the documentation as recorded by the Heladioibrico Coleman Provider Scribe Attestation: All medical record entries made by the Scribe were at my direction and personally dictated by me. I have reviewed the chart and agree that the record accurately reflects my personal performance of the history, physical exam, medical decision making, and the department course for this patient. I have also personally directed, reviewed, and agree with the discharge instructions and disposition. Disposition/Present on Arrival - Present on Arrival Any Indicators Present on Arrival: No History of DVT/PE: No History of Uncontrolled Diabetes: No Urinary Catheter: Yes (#16 2wf) History of Decub. Ulcer: No History Surgical Site Infection Following: None - Disposition Have Diagnosis and Disposition been Completed?: Yes Diagnosis: Urinary retention, Indwelling Awad catheter present Disposition: HOME/ ROUTINE Disposition Time: 00:30 Patient Plan: Discharge Patient Problems: Current Active Problems Problem Status Onset Indwelling Awad catheter present Acute Urinary retention Acute Condition: IMPROVED Forms: [employer] (Georgian)
== END 2017-06-28 01:10 | disposition home or self-care (01) ==
LOC: ED 23:08
DX: R33.8 Other retention of urine (principal); N40.1 Benign prostatic hyperplasia with lower urinary tract symptoms; I10 Essential (primary) hypertension

== ENCOUNTER 2017-06-30 05:26 | Emergency (ER) | payer MEDICARE ==
[2017-06-30 05:27] VITALS: BMI 28.8
[2017-06-30 05:50] VITALS: BP 154/91; PULSE 76; RESP 18; TEMP 97.9; O2SAT 96
--- NOTE | 2017-06-30 06:03 | ED PDOC ---
Arrival/HPI - General Chief Complaint: Male Genitourinary Time Seen by Provider: 06/30/17 05:32 Historian: Patient - History of Present Illness Narrative History of Present Illness (Text): 06/30/17 06:03 Higinio Galarza is an 87 year old male, whose past medical history includes BPH , who presents to the Emergency department complaining of urinary retention. Patient states his Awad is clogged and has not been draining since yesterday evening. Patient states he has experienced similar symptoms in the past. Patient denies any abdominal pain, nausea, vomiting, diarrhea, hematuria, back pain, fever, chills, or any other complaints. Urologist: Dr. Hay Symptom Onset: Gradual Symptom Course: Unchanged Activities at Onset: Light Context: Home Past Medical History - Provider Review Nursing Documentation Reviewed: Yes - Infectious Disease Hx of Infectious Diseases: None - Cardiac Hx Hypertension: Yes - Pulmonary Hx Respiratory Disorders: No - Neurological Hx Neurological Disorder: No - HEENT Hx Cataracts: Yes - Renal Hx Renal Disorder: No - Endocrine/Metabolic Hx Endocrine Disorders: No - Hematological/Oncological Hx Blood Disorders: No Hx Blood Transfusions: No Hx Blood Transfusion Reaction: No - Integumentary Other/Comment: left hip surgical site intact swelling bruising noted covered with sutures and dsd, small surgical incision with sutures below 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 noted, bruising to left hip/thigh/ inner left groin to inner thigh, bruising to left arm and dry thick brown scab to left elbow odette 3.5cm x 1.5cm, thick hard toenails, bruising posterior left knee and thigh, ble +2 pitting edema tight skin - Musculoskeletal/Rheumatological Hx Falls: Yes Hx Fractures: Yes (left Femur-s/p ORIF) - Gastrointestinal Hx Gastrointestinal Disorders: No - Genitourinary/Gynecological Other/Comment: + urinary catheter - Psychiatric Hx Psychophysiologic Disorder: No Hx Substance Use: No - Surgical History Hx Orthopedic Surgery: Yes (pin left hip) Other/Comment: Hip surgery. - Anesthesia Hx Anesthesia Reactions: No Hx Malignant Hyperthermia: No Family/Social History - Physician Review Nursing Documentation Reviewed: Yes Family/Social History: Unknown Family HX Smoking Status: Never Smoked Hx Alcohol Use: No Hx Substance Use: No Allergies/Home Meds Allergies/Adverse Reactions: Allergies No Known Allergies Allergy (Verified 06/30/17 05:50) Home Medications: Home Meds Medication Instructions Recorded Confirmed Tamsulosin [Flomax] 0.4 mg PO DAILY 06/23/17 06/30/17 Review of Systems - Physician Review All systems were reviewed & negative as marked: Yes - Review of Systems Constitutional: Normal. absent: Fevers Eyes: Normal ENT: Normal Respiratory: Normal. absent: SOB, Cough Cardiovascular: Normal. absent: Chest Pain Gastrointestinal: Normal. absent: Abdominal Pain, Diarrhea, Nausea, Vomiting Genitourinary Male: Urinary Output Changes (+urinary retention). absent: Dysuria, Frequency, Hematuria Musculoskeletal: Normal. absent: Back Pain, Neck Pain Skin: Normal. absent: Rash Neurological: Normal. absent: Headache, Dizziness Endocrine: Normal Hemo/Lymphatic: Normal Psychiatric: Normal Physical Exam Vital Signs Reviewed: Yes Vital Signs Temp Pulse Resp BP Pulse Ox 06/30/17 05:46 97.9 F 76 18 154/91 H 96 Temperature: Afebrile Blood Pressure: Normal Pulse: Regular Respiratory Rate: Normal Appearance: Positive for: Well-Appearing, Non-Toxic, Comfortable Pain Distress: None Mental Status: Positive for: Alert and Oriented X 3 - Systems Exam Head: Present: Atraumatic, Normocephalic Pupils: Present: PERRL Extroacular Muscles: Present: EOMI Conjunctiva: Present: Normal Mouth: Present: Moist Mucous Membranes Neck: Present: Normal Range of Motion Respiratory/Chest: Present: Clear to Auscultation, Good Air Exchange. No: Respiratory Distress, Accessory Muscle Use Cardiovascular: Present: Regular Rate and Rhythm, Normal S1, S2. No: Murmurs Abdomen: Present: Normal Bowel Sounds. No: Tenderness, Distention, Peritoneal Signs Back: Present: Normal Inspection Upper Extremity: Present: Normal Inspection. No: Cyanosis, Edema Lower Extremity: Present: Normal Inspection. No: Edema Neurological: Present: GCS=15, CN II-XII Intact, Speech Normal Skin: Present: Warm, Dry, Normal Color. No: Rashes Psychiatric: Present: Alert, Oriented x 3, Normal Insight, Normal Concentration Medical Decision Making ED Course and Treatment: 06/30/17 06:03 Impression: 87 year old male complaining of urinary retention yesterday. Differential Diagnosis included but are not limited to: BPH vs. urinary retention Plan: -- Awad catheter change -- Reassess and disposition Prior Visits: Notes and results from previous visits were reviewed. On 06/27/2017, pt was seen in the Emergency department for urinary retention. Pt was d/c home after Awad catheter change. Progress Notes: Awad catheter changed by RN, 18 Israeli catheter placed. Draining yellow urine without difficulty. Pt tolerated procedure well, reports relief after Awad change. 06/30/17 06:31 On re-evaluation, patient feels better and is in no acute distress. Patient is stable for discharge. Patient was instructed to follow up with physician or return if symptoms worsen or new concerning symptoms arise. - Scribe Statement The provider has reviewed the documentation as recorded by the Nimesh Ta Provider Scribe Attestation: All medical record entries made by the Scribrico were at my direction and personally dictated by me. I have reviewed the chart and agree that the record accurately reflects my personal performance of the history, physical exam, medical decision making, and the department course for this patient. I have also personally directed, reviewed, and agree with the discharge instructions and disposition. Disposition/Present on Arrival - Present on Arrival Any Indicators Present on Arrival: No History of DVT/PE: No History of Uncontrolled Diabetes: No Urinary Catheter: Yes (#16 2wf) History of Decub. Ulcer: No History Surgical Site Infection Following: None - Disposition Have Diagnosis and Disposition been Completed?: Yes Diagnosis: Urinary retention, Awad catheter problem Disposition: HOME/ ROUTINE Disposition Time: 06:31 Condition: GOOD Discharge Instructions (ExitCare): Awad Catheter Placement and Care (ED) Forms: [employer] (Irish)
== END 2017-06-30 06:48 | disposition home or self-care (01) ==
LOC: ED 05:26
DX: N40.1 Benign prostatic hyperplasia with lower urinary tract symptoms (principal); R33.8 Other retention of urine; T83.9XXA Unspecified complication of genitourinary prosthetic device, implant and graft, initial encounter; I10 Essential (primary) hypertension

== ENCOUNTER 2017-07-03 09:28 | Day surgery (SDC) | payer MEDICARE ==
--- NOTE | 2017-07-03 10:23 | RAD ---
HISTORY: pre-op COMPARISON: 04/22/2017 FINDINGS: LUNGS: No active pulmonary disease. PLEURA: No significant pleural effusion identified, no pneumothorax apparent. CARDIOVASCULAR: Normal. OSSEOUS STRUCTURES: No significant abnormalities. VISUALIZED UPPER ABDOMEN: Normal. OTHER FINDINGS: None. IMPRESSION: No active disease.
[2017-07-03] MEDS ORDERED: Propofol 10 mg/ml Inj (20 ML) ONE (14:51)
[2017-07-03] MEDS ORDERED: Midazolam 2 MG/2 ML VIAL ONE (14:52)
[2017-07-03] MEDS ORDERED: cefTRIAXone (Rocephin) 1 gm Inj ONE (14:59)
[2017-07-03] MEDS ORDERED: Lactated Ringer's 1,000 ML IV SCH (16:00)
[2017-07-03] MEDS ORDERED: ceFAZolin 1 gm in NS 1 GM/100 ML BAG IVPB ONE (17:30)
[2017-07-04 16:48] VITALS: BP 201/95; PULSE 63; RESP 15; TEMP 97.2; O2SAT 98
--- NOTE | 2017-07-14 06:26 | OP ---
PROCEDURE DATE: 07/03/2017 UROLOGY OPERATIVE REPORT PREOPERATIVE DIAGNOSES: catheter failure and . POSTOPERATIVE DIAGNOSES: catheter failure and . PROCEDURE: SURGEON: Mode Hay MD COMPLICATIONS: There were no complications. ESTIMATED BLOOD LOSS: Less than 25 mL. At the termination of the procedure, the patient had wide open from the verumontanum. OTHER OPERATIVE FINDINGS: Normal anterior urethra. No strictures. Verumontanum is visually occlusive preop, and postop is wide open. There is no bladder lesions. There is some erythema, this is also to the catheter. INDICATIONS: See history and physical for further details. This is a very pleasant elderly gentleman who prior to this was my patient with voiding dysfunction with mild irritative and obstructive complaints. Of late, since he broke his hip, he has been in urinary retention. Initially a plan was made to manage the patient with an indwelling Awad and to change the catheter periodically. However, the patient is experiencing more and more visits to the emergency room where the catheter is not working well and he is not doing well with the catheter at home. Then we discussed the options. We discussed the risks and benefits of treatment. We discussed risk of failure of the procedure and we also discussed the benefits that the patient will be able to urinate. After discussing all these options at great length, the patient is agreeable to proceed with the above procedure. All the risks of the procedure, urinary incontinence long-term, the risks of perforation, rectal perforation, bladder perforation were all discussed. The patient is here now for the above procedure. DESCRIPTION OF PROCEDURE: After obtaining informed consent, the patient was placed on the table, routine monitors were placed. Time-out was called to confirm the patient and positioning. We gave multiple antibiotic prophylaxes, given his history of recurrent infections and recurrent episodes of . We began procedure in the following fashion. we removed the old catheter. Under sterile technique, we inserted the cystoscope. We did this on the direct vision with the visual obturator. We had arranged for the laser company to . Now we began working carefully, diligently. We had identified all landmarks. Once we identified all landmarks, the bladder neck, the verumontanum etc. we started with 80 flores power. We run through the bladder neck between 5 and 7 o'clock. Once we were opened nicely at the bladder neck, we now turned our attention between 5 and 1 and between 7 and 11. We worked our way from bladder neck down to the veru. We kept reevaluating all landmarks. We actually turned the bladder to about 120 degrees. We now inspected carefully. We were really opening up nicely. There is no bleeding noted. We turned our attention anteriorly between the 11 and 1. It is nearly nicely wide open at base. At this point, we inserted the Awad catheter via the urethra. . We put about 50 mL in the balloon with traction. Patient tolerated the procedure without complication. Mode Hay MD
--- NOTE | 2017-07-14 06:27 | HP ---
REASON FOR ADMISSION: Treatment of urinary retention. He is coming in now for PVP GreenLight laser TURP. HISTORY OF PRESENT ILLNESS: Mr. Galarza is very pleasant gentleman, who has been having catheter failures that . This is an 87-year-old who we are trying to manage him conservatively, however, it is not working out well. he had orthopedic procedure retention. We discussed options with the patient. We have been managing him with changing the Awda catheter, but now he has not happy with that and he has actually had several visits to the emergency room. So, after discussing options, he is going to be admitted now for PVP GreenLight laser TURP. He is also seeing his medical doctor for clearance. PAST MEDICAL AND SURGICAL HISTORY: As listed on the chart. REVIEW OF SYSTEMS: Actually is not a major system. The patient has been in reasonably in good health, especially as he is 87 years old. As described, he says all this began . He had been at his baseline for irritative and obstructive complaints but has not been in retention. . in discussing with the patient the possibilities just to get more time. But of late, he has been making several visits to the ER. MEDICATIONS: See chart. ALLERGIES: NONE. SOCIAL HISTORY: Unremarkable. Retired; his son is supportive and his [id number] (ex [id number]) is also part of his care. PHYSICAL EXAMINATION: GENERAL: A well-nourished male, in no apparent distress. VITAL SIGNS: Within normal limits. LUNGS: Clear. HEART: Normal S1 and S2. ABDOMEN: Soft, nontender. No flank mass appreciated. GENITOURINARY: Normal male phallus without discharge. No testicular mass. RECTAL: A 30 g prostate, soft and smooth. DIAGNOSES: Urinary retention, voiding dysfunction, gross hematuria, recurrent episodes of catheter failure. After discussing both options at length with the patient, my thoughts would be to consider and recommendation would be to continue Awad catheter. I do not think he is a good candidate for CIC. We discussed the idea of a cystostomy tube, but he was not enthusiastic. So after all the options were weighed, we are going to undergo a PVP GreenLight laser TURP. We made arrangements with the company to come that would provide the laser energy. Case discussed at length with the patient and the family, the sometimes that this may not work if the problem is not the prostate and the problem is the bladder. But, after discussing all those options with the patient and that some day he may end up with a cystoscopy tube anyway, but giving GreenLight laser TURP, gently, carefully and meticulously, should allow the patient at least to know that the prostate and empty himself well enough that he does not continue to have trouble. PLAN: After discussing all those options, plan is as follows 1. Antibiotic prophylaxis. 2. PVP GreenLight laser TURP and then further plans will follow. Mode Hay MD
== END 2017-07-04 17:31 | disposition home or self-care (01) ==
LOC: SDS 09:28 → 5RSO 17:50 → SDS 07-04 17:31
PROVIDERS: ATTEND Urology
DX: R33.9 Retention of urine, unspecified (principal); R31.0 Gross hematuria; T83.091A Other mechanical complication of indwelling urethral catheter, initial encounter; Y84.6 Urinary catheterization as the cause of abnormal reaction of the patient, or of later complication, without mention of misadventure at the time of the procedure
CPT/HCPCS: 52648; 72HRC

== ENCOUNTER 2017-07-04 18:56 | Inpatient (IN) | payer MEDICARE ==
--- NOTE | 2017-07-04 19:35 | ED PDOC ---
Arrival/HPI - General Time Seen by Provider: 07/04/17 19:11 Historian: Patient, Parent, EMS - History of Present Illness Narrative History of Present Illness (Text): 07/04/17 19:31 87 y/o male, pmh including BPH, nkda, biba for leaking beasley catheter s/p TURP surgery today and discharge home. pt. stated that the beasley catheter is cloggeg and leaking around the urethra meatus region and request DR. Hay to be contacted. Pt. has no fever or chills, no night sweat, no dizziness, no rash , no numbness or tingling, no palpitation, no abdominal or pelvic pain, no other medical or psychological complaints. Past Medical History - Provider Review Nursing Documentation Reviewed: Yes - Infectious Disease Hx of Infectious Diseases: None - Cardiac Hx Pacemaker: No - Pulmonary Hx Respiratory Disorders: No - Neurological Hx Neurological Disorder: No - HEENT Hx Cataracts: Yes - Renal Hx Renal Disorder: No - Endocrine/Metabolic Hx Endocrine Disorders: No - Hematological/Oncological Hx Blood Transfusions: No - Integumentary Other/Comment: left hip surgical site intact swelling bruising noted covered with sutures and dsd, small surgical incision with sutures below larger incisin site cake maker bruising and swelling noted, bruising to left hip/thigh/ inner left groin to inner thigh, bruising to left arm and dry thick brown scab to left elbow cake maker 3.5cm x 1.5cm, thick hard toenails, bruising posterior left knee and thigh, ble +2 pitting edema tight skin - Musculoskeletal/Rheumatological Hx Falls: Yes Hx Fractures: Yes (left Femur-s/p ORIF) - Gastrointestinal Hx Gastrointestinal Disorders: No - Genitourinary/Gynecological Other/Comment: + urinary catheter - Psychiatric Hx Emotional Abuse: No Hx Physical Abuse: No Hx Substance Use: No - Surgical History Hx Orthopedic Surgery: Yes (pin left hip) Other/Comment: Hip surgery. - Anesthesia Hx Anesthesia Reactions: No Hx Malignant Hyperthermia: No - Suicidal Assessment Feels Threatened In Home Enviroment: No Family/Social History - Physician Review Nursing Documentation Reviewed: Yes Family/Social History: Unknown Family HX Smoking Status: Never Smoked Hx Alcohol Use: No Hx Substance Use: No Allergies/Home Meds Allergies/Adverse Reactions: Allergies No Known Allergies Allergy (Verified 06/30/17 05:50) Home Medications: Home Meds Medication Instructions Recorded Confirmed No Known Home Med 07/04/17 07/04/17 Review of Systems - Review of Systems Constitutional: absent: Fatigue, Fevers Eyes: absent: Vision Changes ENT: absent: Hearing Changes Respiratory: absent: SOB, Cough Cardiovascular: absent: Chest Pain Gastrointestinal: absent: Abdominal Pain, Diarrhea, Nausea, Vomiting Genitourinary Male: Urinary Output Changes. absent: Dysuria, Frequency, Hematuria Musculoskeletal: absent: Arthralgias, Back Pain Skin: absent: Rash, Pruritis Neurological: absent: Headache Hemo/Lymphatic: absent: Adenopathy Psychiatric: absent: Anxiety, Depression Physical Exam Vital Signs Reviewed: Yes Vital Signs Temp Pulse Resp BP Pulse Ox 07/05/17 03:15 78 18 130/93 H 98 07/05/17 00:50 73 17 136/77 98 07/04/17 19:35 98.0 F 91 H 16 99 Temperature: Afebrile Pulse: Regular Respiratory Rate: Normal Appearance: Positive for: Well-Appearing, Non-Toxic, Comfortable Pain Distress: None Mental Status: Positive for: Alert and Oriented X 3 - Systems Exam Head: Present: Atraumatic, Normocephalic Pupils: Present: PERRL Extroacular Muscles: Present: EOMI Conjunctiva: Present: Normal Mouth: Present: Moist Mucous Membranes Neck: Present: Normal Range of Motion Respiratory/Chest: Present: Clear to Auscultation, Good Air Exchange. No: Respiratory Distress, Accessory Muscle Use Cardiovascular: Present: Regular Rate and Rhythm, Normal S1, S2. No: Murmurs Abdomen: Present: Normal Bowel Sounds. No: Tenderness, Distention, Peritoneal Signs, Rebound, Guarding Genitourinary Male: Present: Normal External Genitalia, Other (visible beasley cather inserted with the leg bag yellow urine color with no gross hematuria but there is mild leaking urine from the urethra meatus with the diaper urine stain noted. ). No: Lesions, Penile Discharge, Testicle Tenderness, Penile Swelling, Hernias, Testicle Swelling Back: Present: Normal Inspection Upper Extremity: Present: Normal Inspection. No: Cyanosis, Edema Lower Extremity: Present: Normal Inspection, Other (RLE: +ttp on the rt. calf region with mild spasm noted, no cellulitis or streaking, FROM without limitation, sensation intact, motor 5/5, +DPPT pulses, capillary refill< 2 seconds, neurovascular intact. ). No: Edema Neurological: Present: GCS=15, Speech Normal, Motor Func Grossly Intact, Memory Normal Skin: Present: Warm, Dry, Normal Color. No: Rashes Psychiatric: Present: Alert, Oriented x 3, Normal Insight, Normal Concentration Medical Decision Making ED Course and Treatment: 07/04/17 19:34 -I spoke to DR. Hay, suggest to irrigate and if not successful then remove the beasley to see if he can urinate without beasley or replace it. -Will irrigate 07/04/17 20:06 -Beasley cathether irrigated by me with 1000cc normal saline, deflate and re inflate the ballon, no more leaking noted, his diaper is change from wet to dry , will observe -Pt. started to complain about rt. calf pain, RLE venuous doppler ordered. -Tylenol and valium ordered 07/04/17 21:08 -Calf pain and stiffness resolved -RLE Venuous doppler: as per preliminary report, no acute DVT -Pt. make a full bag of urine without leaking. 07/04/17 23:39 -UA show +UTI, macrobid ordered. -I went to examined the patient again, noted that the diaper pad on him is wet again, will remove his beasley catheter and see if he can urinate on himself as per Dr. Hay. If not successful, then will replace his beasley. 07/05/17 01:52 -Pt. urinated 50cc of blood tinged urine, bladder sonogram perform and still has 300cc of urine remaining and feeling distended, beasley inserted, drained 400cc out with dark yellow urine color -I discussed with Dr. Hay about the case in detail and regarding about the complexity about this catheter problem, pt.'s family is concerning. I will keep this patient over night. -I spoke to the pmd Dr. Pisano, discussed the case in detail and about the complication of beasley catheter, will admit to his service with Dr. Hay on consult, discussed about IVF maintenance plan. -I discussed the case with Dr. Winters, discussed about the case and he will put in the admission order. -labs are non-significant -UA show +UTI, macrobid given -IVF @ 60cc per hour. 07/05/17 02:34 -Sonogram of the bladder is 0 ML now after the catheter and no leaking noted at this time. - Lab Interpretations Lab Results: 07/05/17 00:16 07/05/17 00:16 Lab Results 07/05/17 01:40: PT 12.6 H, INR 1.10 H, APTT 33.0 07/05/17 00:16: WBC 9.2, RBC 4.92, Hgb 14.7, Hct 44.3, MCV 90.0 D, MCH 29.9, MCHC 33.2, RDW 14.3, Plt Count 271, MPV 10.0, Gran % 62.0, Lymph % (Auto) 26.4, [place] % (Auto) 8.7 H, Eos % (Auto) 2.7, Baso % (Auto) 0.2, Gran # 5.70, Lymph # ( Auto) 2.4, [place] # (Auto) 0.8 H, Eos # (Auto) 0.3, Baso # (Auto) 0.02 07/05/17 00:16: Sodium 142, Potassium 4.1, Chloride 103, Carbon Dioxide 27, Anion Gap 16, BUN 17, Creatinine 1.2, Est GFR ( Amer) > 60, Est GFR (Non- Af Amer) 57, Random Glucose 119 H, Calcium 9.8, Total Bilirubin 0.7, AST 24, ALT 28, Alkaline Phosphatase 79, Total Protein 7.1, Albumin 3.7, Globulin 3.4, Albumin/Globulin Ratio 1.1 07/04/17 21:50: Urine Color Yellow, Urine Appearance Clear, Urine pH 6.0, Ur Specific [place] 1.010, Urine Protein 100 H, Urine Glucose (UA) Negative, Urine Ketones Negative, Urine Blood Large H, Urine Nitrate Positive H, Urine Bilirubin Negative, Urine Urobilinogen 1.0 H, Ur Leukocyte Esterase Trace H, Urine RBC 5 - 10, Urine WBC 2 - 5, Ur Epithelial Cells 1 - 3, Urine Bacteria Large, Urine Other Fiber - RAD Interpretation Radiology Orders: 07/04/17 20:04 DUPLEX LOWER EXTRM VEIN RIGHT [US] Stat -RLE Venuous doppler: as per preliminary report, no acute DVT Flame Cutting Machine Operator: Radiologist - Medication Orders Current Medication Orders: Sodium Chloride (Sodium Chloride 0.9%) 1,000 mls @ 60 mls/hr IV .[id number] JHON Last Admin: 07/05/17 02:57 Dose: 60 mls/hr eMAR Start Stop Document 07/05/17 02:57 IT (Rec: 07/05/17 02:57 IT [id number]) Intravenous Solution Start Date 07/05/17 Start Time 02:57 Discontinued Medications Acetaminophen (Tylenol 325mg Tab) 650 mg PO STAT STA Stop: 07/04/17 20:08 Last Admin: 07/04/17 20:19 Dose: 650 mg MAR Pain/Vitals Document 07/04/17 20:19 IT (Rec: 07/04/17 20:19 IT [id number]) Pain Reassessment Is This A Pain ReAssessment? No Diazepam (Valium) 5 mg PO ONCE ONE PRN Reason: Protocol Stop: 07/04/17 20:08 Last Admin: 07/04/17 20:19 Dose: 5 mg Nitrofurantoin Macrocrystals (Macrobid) 100 mg PO STAT STA Stop: 07/05/17 00:42 Last Admin: 07/05/17 01:08 Dose: 100 mg - PA / HAIR BOILER OPERATOR / Resident Statement MD/DO has reviewed & agrees with the documentation as recorded. Disposition/Present on Arrival - Present on Arrival Any Indicators Present on Arrival: No History of DVT/PE: No History of Uncontrolled Diabetes: No Urinary Catheter: Yes (#16 2wf) History of Decub. Ulcer: No History Surgical Site Infection Following: None - Disposition Have Diagnosis and Disposition been Completed?: Yes Diagnosis: Leg pain, Beasley catheter problem, UTI (urinary tract infection), Urinary retention Disposition: HOSPITALIZED Disposition Time: 21:08 Patient Plan: Admission, Observation Patient Problems: Current Active Problems Problem Status Onset Beasley catheter problem Acute Leg pain Acute Urinary retention Acute Urinary tract infection Acute Condition: STABLE
[2017-07-04 22:52] LABS: URINE BILIRUBIN NEGATIVE (NEGATIVE); URINE BLOOD LARGE (NEGATIVE); URINE GLUCOSE (UA) NEGATIVE (NEGATIVE); URINE LEUKOCYTE ESTERASE TRACE Leu/uL (NEGATIVE); URINE NITRATE POSITIVE (NEGATIVE); URINE PROTEIN 100 mg/dL (<30 mg/dL)
[2017-07-04 22:53] LABS: URINE APPEARANCE CLEAR (CLEAR); URINE COLOR YELLOW (YELLOW)
[2017-07-04 23:12] LABS: URINE BACTERIA LARGE (NEG)
[2017-07-05 01:04] LABS: BASO # 0.02 K/mm3 (0.0-2.0); BASO % 0.2 % (0.0-3.0); EOS # 0.3 (0.0-0.7); EOS % 2.7 % (1.5-5.0); GRAN # 5.7 (1.4-6.5); HEMOGLOBIN 14.7 g/dL (14.0-18.0); LYMPH # 2.4 (1.2-3.4); LYMPH % 26.4 % (22.0-35.0); MEAN CORPUSCULAR HEMOGLOBIN 29.9 pg (25.0-35.0); MEAN CORPUSCULAR HGB CONC 33.2 g/dl (31.0-37.0); MONO # 0.8 (0.1-0.6); MONO % 8.7 % (1.0-6.0); RBC 4.92 10^6/uL (3.5-6.1); RED CELL DISTRIBUTION WIDTH 14.3 % (11.5-14.5); WHITE BLOOD COUNT 9.2 10^3/ul (4.5-11.0)
[2017-07-05 01:21] LABS: ALB/GLOB RATIO 1.1 (1.1-1.8); ALBUMIN 3.7 g/dL (3.0-4.8); ALT/SGPT 28 U/L (7-56); AST/SGOT 24 U/L (17-59); BLOOD UREA NITROGEN 17 mg/dL (7-21); CALCIUM 9.8 mg/dL (8.4-10.5); GFR AFRICAN-AMERICAN > 60; GFR NON-AFRICAN AMERICAN 57
[2017-07-05 02:09] LABS: PROTHROMBIN TIME 12.6 SECONDS (9.4-12.5)
[2017-07-05 02:10] LABS: INR 1.1 (0.93-1.08)
[2017-07-05] MEDS: Sodium Chloride 0.9% 1,000 ML IV SCH ×2 (02:57→20:05)
[2017-07-05 05:06] VITALS: BMI 26.9
--- NOTE | 2017-07-06 01:15 | HP ---
CHIEF COMPLAINT: Urinary retention, Awad catheter failure/obstruction. HISTORY OF PRESENT ILLNESS: This is an 87-year-old man with a history of urologic difficulties. He was recently hospitalized for prostate procedure and was held overnight because the procedure ran late. The following day, he was doing well and ready for discharge to home with a Awad catheter in place. The patient went home that Friday midday and late Friday evening, his daughter called me because he was passing urine around the Awad catheter, voiding on himself and on his clothing. The Awad catheter was not draining urine into the bag, so she was advised to come to the emergency room. Apparently, in the emergency room, after contacting the patient's urologist, Dr. Hay, they had lavaged the catheter, replaced it, but there were still problems with the Awad catheter nonfunctioning, so the patient was admitted. 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 PAST MEDICAL HISTORY: Significant for diverticulosis of the colon many years ago and elevated PSA with extensive negative workup by his urologist in the past. He had a left hip fracture in October 2016. SOCIAL HISTORY: He is . Former smoker. Does not drink alcohol. Does not drink coffee. ALLERGIES: HE HAS NO KNOWN ALLERGIES TO MEDICATION, BUT APPARENTLY MELOXICAM CAUSED AN ADVERSE REACTION IN THE PAST. CURRENT MEDICATIONS: Include Flomax and metoprolol 25 mg b.i.d. REVIEW OF SYSTEMS: Otherwise negative on multiple points. PHYSICAL EXAMINATION: GENERAL: The patient was seen this Friday morning in room 362, bed 1. Sitting in bed comfortable, awake, alert and in good spirits. He is much more comfortable now as his Awad catheter is draining nicely. The nurses on the floor tell me it had been replaced again on the [facility] floor as it had not been working when he came up from the ER. HEAD AND NECK: Otherwise unremarkable. Mucous membranes are moist. Neck is supple without masses. Thyroid is not palpable. LUNGS: Clear with good aeration, right and left. HEART: Regular, not tachycardic. ABDOMEN: Mildly overweight, but nontender, no guarding or rebound. EXTREMITIES: Show no edema. There is decreased only +1 palpable pulses in both right and left lower extremities. GENITALIA: Awad catheter is draining red tinged urine as mentioned above. IMPRESSION: 1. Awad catheter dysfunction. 2. Benign prostatic hypertrophy. 3. Questionable history of hypertension for which he is taking metoprolol. PLAN: I spoke with the patient at length explaining the mechanical features of this complication. He seems to understand the functions of the Awad catheter and the procedure that was done. I explained to him that it will be up to the urologist, Dr. Hay as to whether he will need to continue his stay here at [facility] based on the likelihood of bleeding and whether the catheter may clog once again, but I will leave that to Dr. Hay to decide and assess, but from the medical perspective, he is stable and can be discharged safely to home. I will follow up with him in the office in a week or two and Urology followup will be scheduled by Dr. Hay. If he is still here in the hospital in the morning, I will be more than happy to see him then. Tim Pisano MD MTDD
--- NOTE | 2017-07-06 06:20 | PCM.URO ---
Urology Progress Note - Objective Lab Studies: Reviewed (pt with repat visits to the emergency room with catheter problems since admission here he has an indwellling working catheter. plans to be discussed) Intake & Output: Intake & Output 07/05/17 07/05/17 07/06/17 06:59 18:59 06:59 Intake Total 190 720 Output Total 700 900 400 Balance -510 -180 -400 Weight 172 lb Intake: Oral 190 720 Output: Urine 700 900 400 Urethral (Awad) 700 900 400 Other: Voiding Method Indwelling Catheter # Bowel Movements 0 1 0 Vital Signs: Vital Signs - 24 hr 07/05/17 07/05/17 08:03 16:00 Temperature 97.8 F 98 F Pulse Rate 70 73 Respiratory 20 19 Rate Blood Pressure 142/82 126/83 O2 Sat by Pulse 98 94 L Oximetry
--- NOTE | 2017-07-06 11:01 | US ---
PROCEDURE: Right lower extremity venous US HISTORY: Leg pain and swelling. Evaluate for DVT. PHYSICIAN(S): Garrett Almazan M.D. TECHNIQUE: Duplex sonography and color-flow Doppler with graded compression were used to evaluate the deep venous system of the right lower extremity. FINDINGS: The visualized deep venous system of the right lower extremity is sonographically normal and compressible. Normal waveforms and augmentation are seen. There is no sonographic evidence for deep venous thrombosis in the visualized segments of the right lower extremity. IMPRESSION: 1. No sonographic evidence for deep venous thrombosis in the visualized segments of the right lower extremity.
--- NOTE | 2017-07-06 23:32 | PN ---
DATE: 07/06/2017 SUBJECTIVE: The patient was seen this Friday morning in room 362, bed 1. He is seen by Urology, Dr. Hay, earlier today and released for discharge to home. The Awad catheter is draining nicely. There is urine in the Awad. There is no further leaking around the Awad. The patient is in good spirits, awake, alert, clear, ready for discharge to home. He has been fully ambulatory. Discharge order was written and we will follow up with the urologist next week. A few hours later, I received a phone call. The patient's Awad became clogged. He was voiding around the Awad. The nurses already spoke with the urologist, Dr. Hay. They duke lavaged the catheter, but it was still leaking around it with little to no urine passing through the Awad itself. Dr. Hay was notified and canceled the discharge. I will see the patient in the morning and speak with Urology. Tim Pisano MD MTDYanelis
[2017-07-07 08:47] VITALS: O2SAT 94
--- NOTE | 2017-07-07 22:07 | PCM.URO ---
Urology Progress Note - Objective Lab Studies: Reviewed (voiding well) Intake & Output: Intake & Output 07/07/17 07/07/17 07/08/17 06:59 18:59 06:59 Intake Total 960 Output Total 725 600 Balance -725 360 Intake: Oral 960 Output: Urine 725 600 Urethral (Awad) 725 400 Urine, Voided 200 Other: # Bowel Movements 0 0 Vital Signs: Vital Signs - 24 hr 07/07/17 07/07/17 08:47 10:27 Temperature 98.6 F Pulse Rate 66 66 Respiratory 20 Rate Blood Pressure 123/71 123/71 O2 Sat by Pulse 94 L Oximetry
[2017-07-08 08:14] VITALS: BP 137/73; PULSE 75; RESP 18; TEMP 98.9
--- NOTE | 2017-07-08 10:19 | US ---
PROCEDURE: Ultrasound of the urinary bladder HISTORY: retention//do not have pt drink xtra fluid - COMPARISON: None TECHNIQUE: Grayscale imaging was performed. FINDINGS: The urinary bladder is decompressed. The prostate gland is markedly enlarged and measures 5.6 x 5.8 x 6.2 cm with a volume of 105.33 mL. IMPRESSION: Urinary bladder is decompressed. Markedly enlarged prostate gland. Please correlate with PSA levels.
--- NOTE | 2017-07-08 13:45 | PN ---
DATE: 07/07/2017 See the previously dictated notes from the consultation. SUBJECTIVE: The patient is currently resting comfortably. We removed his Awad catheter this morning. He has been voiding all day. He is incontinent. We are going to continue to monitor the patient. We have done a few bladder scans thus and the residual is 0, but the patient is a little bit uncomfortable with the discharge while he still has incontinence. I wanted to see him in person. The patient has previously been discharged home with a Awad catheter and then after he goes home with a Awad catheter, he comes back in. Initially, he had a catheter, was working well. He would just come to the office every 4 to 6 weeks and we would change the catheter. Of late, though, the patient has been having tremendous amount of trouble with the catheter as evidenced by the number of visits to the ER. Though, we are trying to now send him home with a catheter at this time. I have explained this to the patient in great detail. Specifically, on Friday, again see the previously dictated note, he had the surgery on , when I came to the hospital to visit him on Friday, he was already dressed in clothes, ready to go and then when he went home, he came right back to the hospital Friday night because the catheter was "leaking". Since the time of his admission, catheter had stopped leaking and had not had further problems and then as noted yesterday, he had some afternoon leaking on 07/06/2017. But now, we removed the catheter this morning. There is some urinary incontinence. The patient says he does not have a great sensation. The past medical and surgical, no other changes. REVIEW OF SYSTEMS: The abdomen is relatively soft, difficult to tell based on body habitus or distention. DIAGNOSES: Gross hematuria, urinary retention, voiding dysfunction, and elevated PSA. A very pleasant 87-year-old gentleman with the above history. He has now given a voiding trial. He is voiding, he is incontinent, bladder scans reviewed. PLAN: We are going to observe the patient and then make further plans. We will actually get an official bladder ultrasound tomorrow. If voiding and is not in retention, we are going to send him home even with incontinence. I explained to the patient that after this kind of surgical procedure, there are two kinds of issues we have to deal with. One is retention and overflow continence and just urinary sphincter incontinence. I tried to do my best to explain this to the patient. That if it is overflow incontinence, we will be re-inserting a Awad catheter. If it is just sphincter incontinence, that is postop expectation and give more time and we will discuss Kegel. So, the plan as of now on 07/07/2017 is that on 07/08/2017, we are going to do a bladder scan and if it is negative, we will discharge the patient home even if he . Again, see previously dictated note. Mode Hay MD
--- NOTE | 2017-07-09 08:44 | CON ---
DATE: 07/06/2017 UROLOGY CONSULTATION See my previously dictated notes. HISTORY OF PRESENT ILLNESS: The patient was recently admitted to the hospital on 07/03/2017, I did a left the patient fairly well opened, he had a very large prostate. He has had recurrent bouts of urinary retention. At that time, risk, benefits and treatment were explained to him. The patient was then seen by me on 07/04/2017, and by the time I came to the floor, which was about 2 p.m. on 07/05/2017, the patient was already in close, ready to go to home, saying he wants to go home; the operation was done on 07/03/2017, and then on 07/04/2017, he went home. Then on 07/04/2017, after he went home, at about 3:00 in the afternoon, was dressed on 07/04/2017 at about 7 p.m., he said the catheter was not working well and came back to the emergency room and he was readmitted. Catheter is currently working well. Urology was consulted for further recommendations; see below. The past medical and surgical, as above listed . The abdomen is soft. catheter in place, draining well. Urine is relatively clear. DIAGNOSES: Urinary retention, voiding dysfunction, and catheter trouble, and having trouble staying home. We discussed this with the patient at length. I also discussed with his concerned. The patient is having a lot of catheter trouble and so I am going to try to not discharge him home again with the catheter in place. We are going to plan for voiding trial on 07/07/2017, and then make further plans and recommendations. PLAN: In the meantime, keep the Awad catheter, it is currently draining well. Make sure the patient is on Flomax. We will plan for voiding trial, to follow on 07/07/2017, and then subsequently we will see how the patient does. Mode Hay MD
== END 2017-07-08 13:06 | disposition home or self-care (01) | DRG 699 ==
LOC: ED 18:56 → ERH 07-05 01:57 → 3RNO 07-05 03:12
PROVIDERS: ADMIT Internal Medicine; ATTEND Internal Medicine
DX: T83.091A Other mechanical complication of indwelling urethral catheter, initial encounter (principal); N39.0 Urinary tract infection, site not specified; R31.0 Gross hematuria; N40.1 Benign prostatic hyperplasia with lower urinary tract symptoms; R33.8 Other retention of urine; K57.30 Diverticulosis of large intestine without perforation or abscess without bleeding; M79.606 Pain in leg, unspecified; Y84.6 Urinary catheterization as the cause of abnormal reaction of the patient, or of later complication, without mention of misadventure at the time of the procedure; Z87.891 Personal history of nicotine dependence